=== PATIENT | female | born 1955 | race Caucasian/White ===

== ENCOUNTER → 2018-05-17 10:51 | Outpatient (CLI) | payer BC, SELFPAY ==
--- NOTE | 2018-05-17 10:56 | MM_ITS ---
MM Dig screening mamm BI w/CAD ORDERING PHYSICIAN : Sin Alfaro MD PATIENT AGE: 62 years GENDER: Female COMPARISON: March INDICATION: ITS.REASON: SCREENING routine screening mammogram. No hormones no new complaints. Previous benign excisional biopsy right breast noncontributory family history TECHNIQUE: Standard CC and MLO images were obtained. R2 CAD reviewed. FINDINGS: Lower density breast with no dominant mass nor suspicious calcifications. RIGHT BREAST:No significant new findings Stable small likely intramammary lymph node at the lateral left breast again noted on cc view. LEFT BREAST no new findings No interval change. . Minimal nodularity at the lateral superior left breast is stable IMPRESSION: Stable bilateral mammogram No new areas of concern. Bilateral follow-up in one year BI-RADS Category: 2 Benign Finding(s) RECOMMENDED FOLLOW-UP: 1YR 1 YEAR FOLLOW-UP (A letter has been sent to the patient regarding results of the study.)
== END ==
PROVIDERS: PCP Family Medicine; Visit Provider Family Medicine
DX: Z12.31 Encounter for screening mammogram for malignant neoplasm of breast (principal)
CPT/HCPCS: 77067

== ENCOUNTER → 2018-05-24 08:55 | Outpatient (CLI) | payer BC, SELFPAY ==
--- NOTE | 2018-05-24 09:01 | XR_ITS ---
XR DEXA axial skeleton HISTORY: ITS.REASON: OSTEOPENIA ORDERING PHYSICIAN: Sin Alfaro MD PATIENT AGE: 62 years COMPARISON: None FINDINGS: The BMD measured at the Right femoral neck is 0.931 g/cm squared with a T score of -0.8. This is considered normal according to the World Health Organization criteria. Fracture risk is low. Treatment is advised. L1 L4 density has a T score of 1.5 which is normal IMPRESSION: Normal bone density with low fracture risk. Recommend follow-up exam May 2020
[2018-05-24 10:52] LABS: Hemoglobin A1C 6.3 % (0.0-7.0)
== END ==
PROVIDERS: Family Medicine; PCP Family Medicine; Visit Provider Family Medicine
DX: M85.89 Other specified disorders of bone density and structure, multiple sites (principal); R73.9 Hyperglycemia, unspecified
CPT/HCPCS: 36415; 77080; 83036

== ENCOUNTER → 2020-02-01 09:39 | Outpatient (CLI) | payer BC, SELFPAY ==
--- NOTE | 2020-02-01 09:44 | US_ITS ---
PROCEDURE: US PELVIC CLINICAL INDICATION: FIBROIDS Pelvic pain, unable to do transvaginal exam due to pain. COMPARISON: No exams were available for comparison FINDINGS: Endovaginal exam not able to be performed due to pelvic pain. The uterus is 9.5 x 3.6 x 5.7 cm in poorly demonstrated due to patient's body habitus and inability to do endovaginal exam. There is a questionable fibroid along the anterior aspect of the uterus at 3.3 x 3.7 cm.. The endometrium is not well delineated. The ovaries are not visualized. IMPRESSION: Somewhat limited study. 3.7 cm fibroid in the fundus of the uterus Dictated by: Dawood Kemp MD 02/02/2020 10:23 Electronically signed by Dawood eKmp MD in [place] 02/02/2020 10:23
== END ==
PROVIDERS: PCP Family Medicine; Visit Provider Family Medicine
DX: D21.9 Benign neoplasm of connective and other soft tissue, unspecified (principal)
CPT/HCPCS: 76856

== ENCOUNTER 2020-08-10 12:31 | Outpatient (CLI) | payer BC, SELFPAY ==
[2020-08-10] VITALS (7 sets, daily range): BP systolic 124–144; BP diastolic 71–80; PULSE 64–75; RESP 18–20; TEMP 36.6–37.1; O2SAT 92–97
== END 2020-08-10 16:34 | disposition home or self-care (01) ==
PROVIDERS: PCP Family Medicine; Visit Provider Family Medicine
DX: U07.1 COVID-19 (principal)
CPT/HCPCS: 96365

== ENCOUNTER 2023-10-16 07:36 | Outpatient (CLI) | payer MEDICARE, SELFPAY ==
--- NOTE | 2023-10-16 07:39 | MM_ITS ---
PROCEDURE INFORMATION: Exam: MG Bilateral Screening 3D Mammography Exam date and time: 10/16/2023 7:51 AM Age: 68 years old Clinical indication: Screening. No family history of breast cancer. History of right excisional biopsy. TECHNIQUE: Imaging protocol: Bilateral Screening tomosynthesis and 2D mammography including computer-aided detection (CAD) when performed. COMPARISON: 1. MG SCBI MM Dig screening mamm BI w/CAD 05/17/2018 11:11 AM 2. MG DMSB DIG MAMM-SCREEN NABILA 05/20/2013 3:56 PM 3. MG DMSB DIGITAL MAMM-SCREEN BILATERAL 03/15/2012 10:27 AM 4. MG DMSB DIGITAL MAMM-SCREEN BILATERAL 12/18/2010 10:29 AM FINDINGS: MAMMOGRAPHY: Breast composition: There are scattered areas of fibroglandular density. Mass: No suspicious mass. Architectural distortion: None. Calcifications: No suspicious calcifications. Asymmetric density: None. Skin thickening: None. Axillary adenopathy: None. IMPRESSION: No mammographic evidence of malignancy. Annual screening is recommended unless otherwise clinically indicated. ASSESSMENT: BI-RADS Category 1: Negative
== END 2023-10-16 23:59 ==
LOC: RAD 07:36
PROVIDERS: PCP Family Medicine; Visit Provider Family Medicine
DX: Z12.31 Encounter for screening mammogram for malignant neoplasm of breast (principal)
CPT/HCPCS: 77063; 77067

== ENCOUNTER 2024-06-27 08:49 | Outpatient (CLI) | payer MEDICARE, SELFPAY ==
--- NOTE | 2024-06-27 | CA_ITS ---
APPROVED REPORT Exam: Exercise Treadmill Technologist: Miranda Shelton Ht: 5 ft 2 in Wt: 175 lbs BSA: 1.81 m2 HR: 71 bpm BP: 131/77 mmHg Stress Test Details HR Resting HR: 71 bpm Max Heart Rate (APMHR): 153 bpm Max HR Achieved: 154 bpm Target HR (85% APMHR): 130 bpm % of APMHR: 101 Recovery HR: 93 bpm BP Resting BP: 131.0/77.0 mmHg Max BP: 189.0/86.0 mmHg Recovery BP: 172.0/83.0 mmHg ECG Resting ECG: NSR Stress EC.[address] depression Arrhythmia: PVCs Recovery ECG: Return to baseline with 3 minutes Recovery Arrhythmia: PVCs Clinical Exercise duration: 6:45 min Highest Stage Achieved: III Exercise capacity: 8.3 METs Overall Exercise Capacity for Age: Average Stress ECG Conclusion Stage II: Mild SOA. R-arm pain. Stage III: SOA. Leg fatigue. Stopped -Target HR/Fatigue. 1 Min recovery: Right arm had claudication type pain during exercise and remained blue in color post recovery. Good pulse, good capillary refill, warm to touch. Patient declined to stay until resolution of symptoms. Symptoms: SOA. Arrhythmias/Ectopy: Heavy artifact. Rare PVC in recovery. Conclusion: Average exercise capacity Significant artifact at peak stress, but no obvious ECG evidence of ischemia at peak stress. Recommend further evaluation with stress testing + imaging modality to further evaluate for ischemia. Electronically signed by : Griselda Butcher MD 06/29/2024 11:07:32
--- NOTE | 2024-06-27 08:52 | XR_ITS ---
FINAL REPORT CLINICAL HISTORY: SCREENING COMPARISON: None FINDINGS: Using L1-4, the bone mineral density of the spine is 1.123 g/cm2, corresponding to T-score of 0.7, within normal limits. Using the left hip, the bone mineral density of the femoral neck is 0.844 g/cm2, corresponding to a T-score of 0.0, within normal limits. Using the right hip, the bone mineral density of the femoral neck is 0.819 g/cm2, corresponding to a T-score of -0.3, within normal limits. FRAX not reported because all T-scores at or above -1.0 NOTE: T-score: Standard deviation compared with peak bone mass of young adult mean. *Following the recommendations of the International Society of Bone densitometry, classification of hip BMD is based on the lower of two T-scores; total hip or femoral neck. IMPRESSION: Normal bone mineral density of the lumbar spine and hips. Reviewed, Interpreted and Dictated by Fanta Reyes MD Transcribed by Laura Li Authenticated and [facility]
== END 2024-06-27 23:59 | disposition home or self-care (01) ==
LOC: RAD 08:50
PROVIDERS: PCP Family Medicine; Visit Provider Family Medicine
DX: M81.0 Age-related osteoporosis without current pathological fracture (principal); R06.02 Shortness of breath
CPT/HCPCS: 77080; 93017; 93018

== ENCOUNTER 2024-07-07 11:20 | Outpatient (CLI) | payer MEDICARE, SELFPAY ==
--- NOTE | 2024-07-07 | CA_ITS ---
APPROVED REPORT Exam: Pharmacologic Technologist: Miranda Bowers Ht: 5 ft 2 in Wt: 180 lbs BSA: 1.83 m2 HR: 59 bpm BP: 161/78 mmHg Rhythm: NSR Medical History Medical History: HTN, Hyperlipidemia Stress Test Details Test: Pharmacologic stress testing performed using 0.4 mg of regadenoson per 5 mL given IV over 10 seconds., Pharmacologic stress testing performed using 0.4 mg of regadenoson per 5 mL given IV over 10 seconds. HR Resting HR: 59 bpm Max Heart Rate (APMHR): 153.189581 bpm Target HR (85% APMHR): 130.992351 bpm Recovery HR: 81 bpm BP Resting BP: 161.0/78.0 mmHg Max BP: 143.0/74.0 mmHg Recovery BP: 147.0/70.0 mmHg ECG Clinical Reason for Termination: Completed protocol Stress ECG Conclusion No chest pain. No arrhythmias <1.5mm ST segment changes. Non diagnostic Lexiscan stress test Electronically signed by : Griselda Butcher MD 07/10/2024 17:39:44
--- NOTE | 2024-07-07 11:25 | NM_ITS ---
APPROVED REPORT Exam: Nuclear Stress Test Indication: chest pain..soa..fatigue Patient Location: Outpatient Stress Tech: Miranda Bowers DC Tech:Jo Ann Torres FERDINAND RT(R)(N) Ht: 5 ft 1 in Wt: 180 lbs Bra Size: 38dd HR: 59 bpm BP: 161/78 mmHg BSA: 1.81 m2 TID: 0.90 BMI: 34.0 History: chest pain..soa..fatigue Procedure: Patient received 0.4 mg of intravenous Lexiscan, resting heart rate 59 bpm, resting blood pressure 161/78 mmHg, with Lexiscan maximum heart rate achieved was 90 bpm which is 85 % of the maximum predicted heart rate and blood pressure was 143/74 mmHg. With Lexiscan, patient denied any complaint of chest pain. Cardiac Stress and Resting SPECT Images: Cardiac Stress and Resting SPECT images were obtained using technetium 99m Myoview 30.5 mCi stress and 10.22 mCi at rest. Resting and stress imaging in supine and prone positions demonstrate no evidence of fixed or reversible perfusion defects. Gated imaging demonstrates normal global and regional LV systolic function. LVEF is calculated at 66%. Conclusion: No evidence of fixed or reversible perfusion defects. Gated imaging demonstrates normal global and regional LV systolic function. LVEF is calculated at 66%. Electronically signed by : Griselda Butcher MD 07/10/2024 17:37:34
[2024-07-07] MEDS: REGADENOSON 0.4MG/5ML SYRINGE 0.4 MG IV (13:57)
[2024-07-07] MEDS: ISOTOPE MYOVIEW (PER STUDY) 1 DOSE IV (13:57)
[2024-07-07] MEDS: SODIUM CHLORIDE 0.9% 10ML SYR (RAD ONLY) 10 ML IV ×2 (13:57)
== END 2024-07-07 23:59 | disposition home or self-care (01) ==
LOC: RAD 11:21
PROVIDERS: PCP Family Medicine; Visit Provider Family Medicine
DX: R06.02 Shortness of breath (principal); R94.39 Abnormal result of other cardiovascular function study
CPT/HCPCS: 78452; 93017; 93018; A9502; J2785

== ENCOUNTER 2024-10-26 12:42 | Outpatient (CLI) | payer MEDICARE, SELFPAY ==
--- OUTSIDE RECORDS SUMMARY | 2024-10-26 12:43 | XMS_ITS | Data Portability ---
Author Organization [facility] ADMIN Address [address] [place] [phone] Assessment No assessment recorded. Plan of Treatment Reminders Order Date Submit Date Provider Last Modified By Organization Details Last Modified Time Details Appointments None record ed. Lab None record ed. Referral None record ed. Procedures None record ed. Surgeries None record ed. Imaging None record ed. Medication Orders None record ed. Patient TargetsNo targets recorded. Patient InstructionsNo instructions recorded. Reason for Referral None Reported. Problems Name Problem SNOMED Code Status Onset Date Resolution Date Notes Provider Name and Address Organization Details Recorded Time Sensorineural hearing loss [id number] Active 2022 PÉREZ LARA [address] , [place], [address] , [facility] [place] 3 11:17:03 Problem Notes None recorded. Procedures Surgical History Date Name Laterality Status Provider Name and Address Organization Details Recorded Time 3 Removal of foreign body from ear canal completed So Mckeon MD [address] , [place], [address], [facility] [place] 10/28/2022 13:52:55 Imaging Results None recorded. Procedure Notes None recorded. Medical Equipment None Reported. Medications Name Sig Start Date Stop Date Status Note LastModified by Organization Details LastModified Time sertraline 100 mg tablet TAKE 1 TABLET BY MOUTH ONCE DAILY active Not Available Not Available No t Available meclizine 12.5 mg tablet TAKE 1 TABLET BY MOUTH THREE TIMES DAILY NEEDED active Not Available Not Available No t Available prednisolone acetate 1 % eye drops,suspen carlene INSTILL 1 DROP INTO THE AFFECTED EYE 4 TIMES DAILY FOR 4 DAYS THEN TWICE DAILY FOR 4 DAYS, BEGIN IMMEDIATELY AFTER YAG active Not Available Not Available No t Available clotrimazole -betamethaso ne 1 %-0.05 % topical cream APPLY CREAM TOPICALLY TWICE DAILY active Not Available Not Available Not Available triamterene 37.5 mg-hydrochlo rothiazide 25 mg tablet TAKE 1 TABLET BY MOUTH ONCE DAILY active Not Available Not Available No t Available mupirocin 2 % topical ointment APPLY OINTMENT TOPICALLY TWICE DAILY active Not Available Not Available Not Available brompheniram ine-pseudoep hedrine-DM 2 mg-30 mg-10 mg/5 mL oral syrup TAKE 5 ML TO 10 ML BY MOUTH EVERY 4 TO 6 HOURS NEEDED FOR COUGH AND CONGESTION -MAX 40ML PER DAY active Not Available Not Available No t Available tobramycin 0.3 %-dexamethas one 0.1 % eye drops,suspen carlene INSTILL 1 DROP INTO EACH EYE 4 TIMES DAILY FOR 5 DAYS active Not Available Not Available N ot Available azithromycin 500 mg tablet TAKE 1 TABLET BY MOUTH ONCE DAILY FOR 3 DAYS UNTIL ALL TAKEN active Not Available Not Available No t Available rosuvastatin 10 mg tablet active Not Available Not Available Not Available rosuvastatin 20 mg tablet TAKE 1/2 (ONE-HALF) TABLET BY MOUTH ONCE DAILY active Not Available Not Available No t Available Trulicity 1.5 mg/0.5 mL subcutaneous pen injector active Not Available Not Available Not Available Trulicity 0.75 mg/0.5 mL subcutaneous pen injector active Not Available Not Available Not Available Vitals None Recorded Social History None recorded. Functional Status None recorded. Mental Status None recorded. Family History Nothing Reported. Medical History No medical history recorded. Gynecological HistoryNo gynecological history recorded. Obstetrics History GPAL:G 0 P 0 0 0 0 Past Encounters Encounter ID Performer Location Encounter Start Date Encounter Closed Date Diagnosis/Indication Diagnosis SNOMED-CT Code Diagnosis ICD10 Code Diagnosis Note [id number] So Mckeon MD [facility] [facility] [place] [address] 10/28/2022 13:37:34 10/28/2022 13:38:13 Foreign body in left ear [id number] T16.2XXA Hearing aid tip removed in office today. Ear healthy otherwise. Will see her back as needed. [id number] PÉREZ LARA [facility] [facility], [facility] [place] [address] 03/25/2023 10:48:52 03/25/2023 11:06:30 Sensorineural hearing loss 02510212 H90.3 Health Concerns Section Related Observation LastModified by Organization Detai ls LastModified Time None Recorded Concern Status LastModified by Organization Details LastModified Time None Recorded Advance Directives Directive None Recorded Payers Encounter Date Sequence Insurance Name Policy Number Policy [place] Covered Member ID [place] Member ID Guarantor Name 10/28/[address] [facility] (MEDICARE REPLACEMENT/A DVANTAGE - PPO) [id number] Noris Montanez [id number] Noris Montanez 03/25/[address] [facility] (MEDICARE REPLACEMENT/A DVANTAGE - PPO) [id number] Noris Montanez [id number] Noris Montanez Notes Date Note Type Note Provider Name and Address Organization Details Recorded Time 10/28/2022 text/html 67yo female in the office today with a hearing aid tip lodged in her left ear canal. States she felt it come off in her ear on Thursday. She hasn't had any drainage or other trouble. Patient well know to me a history of bilateral ear surgeries the last of which was at the [facility]. She has been a long time hearing aid wearer and has a hearing aid tip stuck in her left ear. So Mckeon MD [address], [place], [address], [facility] [place] 10/28/2022 13:59:20 03/25/2023 text/html Patient was seen today for a hearing aid service. Cleaned and adjusted hearing aids this date. PÉREZ LARA [address], [place], [address], [facility] 03/25/2023 11:17:19 OBGyn Episode No OBEpisode recorded.
--- NOTE | 2024-10-26 12:46 | MM_ITS ---
PROCEDURE INFORMATION: Exam: MG Bilateral Screening 3D Mammography Exam date and time: 10/26/2024 1:13 PM Age: 69 years old Clinical indication: Screening examination TECHNIQUE: Imaging protocol: Bilateral Screening tomosynthesis and 2D mammography including computer-aided detection (CAD) when performed. COMPARISON: 1. MG MM DIG SCREENING MAMM BI W/CAD 10/16/2023 7:51 AM 2. MG SCBI MM Dig screening mamm BI w/CAD 05/17/2018 11:11 AM FINDINGS: MAMMOGRAPHY: Breast composition: There are scattered areas of fibroglandular density. Mass: None. Architectural distortion: None. Calcifications: No suspicious calcifications. Asymmetric density: None. Skin thickening: None. Axillary adenopathy: None. IMPRESSION: No mammographic evidence of malignancy. Annual screening is recommended unless otherwise clinically indicated. ASSESSMENT: BI-RADS Category 1: Negative.
== END 2024-10-26 23:59 | disposition home or self-care (01) ==
LOC: RAD 12:42
PROVIDERS: PCP Family Medicine; Visit Provider Family Medicine
DX: Z12.31 Encounter for screening mammogram for malignant neoplasm of breast (principal)
CPT/HCPCS: 77063; 77067

== ENCOUNTER 2025-06-23 10:09 | Outpatient (CLI) | payer MEDICARE, SELFPAY ==
--- OUTSIDE RECORDS SUMMARY | 2023-12-28 05:30 | XMS_ITS ---
Author Organization [facility] Address [address] [place] [id number] Care Team Providers Care Communication Coordinator Name Role Phone Kaitlyn Butcher Primary Care Provider Betzaida Bowman Unavailable [phone] Allergies Allergen (clinical drug ingredient) Drug/Non Drug Allergy documented on EMR Reaction Allergy Type Onset Date Status sulfamethoxazole / trimethoprim Bactrim rash Drug Allergy Active codeine Codeine nausea Drug Allergy Active Results Component Value Reference Range Notes Glycohemoglobin A1c (in hous e) Reviewed date:12/28/2023 11:47:20 AM Interpretation: Performing Lab: Notes/Report: glycohemoglobin 6.1% 5 - 6.5 % P-Comprehensive Metabolic Pa lauryn (CMP) Reviewed date:01/06/2024 12:21:11 PM Interpretation:K+ 3.4, gluc 131 Performing Lab: Notes/Report: Test performed by [facility] [address] [place] [address] , [address], [place] [address] Jimmie Cantrell MD, Hematology Nurse Educator CLIA: [id number] Sodium 140 135-145 mmol/L Potassium 3.4 3.5-5.3 mmol/L Chloride 101 97-108 mmol/L CO2 31 22-32 mmol/L Glucose 131 65-99 mg/dL BUN 16 8-23 mg/dL Creatinine 0.79 0.50-1.00 mg/dL Calcium 9.1 8.6-10.4 mg/dL eGFR by Creatinine 82 >59 mL/min/1.73m2 Protein 6.7 6.0-8.3 g/dL Albumin 4.4 3.5-5.3 g/dL Alkaline Phosphatase 67 35-121 IU/L ALT (SGPT) 23 <5-47 IU/L AST (SGOT) 21 <5-40 IU/L Bilirubin, Total 0.5 <0.2-1.2 mg/dL A/G Ratio 1.9 1.1-2.5 mg/dL P-Lipid Panel Reviewed date:01/06/2024 12:21:11 PM Interpretation:Normal Performing Lab: Notes/Report: Test performed by [facility] [address] [facility] , [address], [place] [address] Jimmie Cantrell MD, Hematology Nurse Educator CLIA: [id number] Cholesterol 151 <200 mg/dL Triglycerides 119 <150 mg/dL HDL Cholesterol 50 >39 mg/dL Cholesterol / HDL Ratio 3.02 0.00-4.44 Ratio Non-HDL Cholesterol 101 <130 mg/dL LDL Cholesterol (Calculation) 77 <130 mg/dL LDL Cholesterol Levels* Less than 100 mg/dL Optimal 100 to 129 mg/dL Near Optimal/ Above Optimal 130 to 159 mg/dL Borderline High 160 to 189 mg/dL High 190 mg/dL and above Very High * Categories as recommended by the 2004 ATPIII guidelines LDL/HDL Ratio 1.5 <3.3 Ratio LDL Cholesterol Patient History Test Date: 12/28/2023 LDL Results: 77 Units: mg/dL % Change: - P-Microalbumin/Creatinine, R andom Urine Sample Reviewed date:01/06/2024 12:21:11 PM Interpretation:Normal Performing Lab: Notes/Report: Test performed by [facility] [address] [place] [address] , [address], [place] [address] Jimmie Cantrell MD, Hematology Nurse Educator CLIA: [id number] Albumin/Creatinine Ratio, Urine 3 0-30 ug/m g Microalbumin, Urine, Random 0.5 Creatinine, Urine 169.6 REASON FOR VISIT 5 Month Check Up, Needs labs, bone density screening, & diabetic eye exam Medications Medication SIG (Take, Route, Frequency, Duration) Notes Start Date End Date Status Maxzide-25 37.5-25 MG 1 tab(s) orally once a day Active Rosuvastatin Calcium 10 mg TAKE 1 TABLET DAILY Active Sertraline HCl 100 MG 1 tab(s) orally on ce a day; Duration: 90 days Active Ozempic (0.25 or 0.5 MG/DOSE) 2 MG/3ML 0.25mg Subcutaneous weekly; Duration: 30 day(s) 12/28/2023 Active Problems Problem Type SNOMED Code ICD Code Onset Dates Problem Status W/U Status Risk Notes Problem Body mass index 30.00 to 34.99 ([id number]) BMI 34.0-34.9,a dult (Z68.34) Active confirmed Vital Signs Weight 185.4 lbs 12/28/2023 Blood pressure systolic 130 mm Hg 12/28/19 24 Blood pressure diastolic 80 mm Hg 024 Heart Rate 64 /min 12/28/2023 Height 61.50 in 12/28/2023 BMI 34.46 kg/m2 12/28/2023 Encounters Encounter Location Date Provider Diagnosis [facility] [facility] [address] [facility] [address] [place] [id number] 12/28/2023 Kaitlyn Butcher Type 2 diabetes debra itus without complication, without long-term current use of insulin E11.9 ; BMI 34.0-34.9,adult Z68.34 ; Essential hypertension I10 and Mixed hyperlipidemia E78.2 Assessments Encounter Date Diagnosis (ICD Code) Assessment Notes Treatment Notes Treatment Clinical Notes Section Notes 12/28/2023 Type 2 diabetes mellitus without complication, without long-term current use of insulin (ICD-10 - E11.9) 12/28/2023 BMI 34.0-34.9,adult (ICD-10 - Z68.34) 12/28/2023 Essential hypertension (ICD-10 - I10) 12/28/2023 Mixed hyperlipidemia (ICD-10 - E78.2) Plan Of Treatment Medication Medication Name Sig Start Date Stop Date Notes Ozempic (0.25 or 0.5 MG/DOSE) 2 MG/3ML 0.25mg Subcutaneous weekly; Duration: 30 day(s) 12/28/2023 Next Appt Details Follow Up: 2 Months, Reason: Provider Name:Kaitlyn Vargas , 06/23/2025 10:00:00 AM, [address] [facility] [address] [facility], [address], [place], [place], [id number], Provider Name:Kaitlyn Vargas , 08/21/2025 11:00:00 AM, [address] [facility] [address] [facility], [address], [place], [place], [id number], Progress Notes * Radha MONTANEZRanjithB:1955 (69 yo F)Acc No.[id number]:12/28/2023 Progress Notes Patient: Noris PLASENCIA Provider: Kaitlyn Butcher M.D. :1955 A ge:68 Y S ex:Female Date:12/28/2023 Address:[address] [place] [address] Subjective: * Chief Complaints: * 1 . 5 Month Check Up. 2. Needs labs, bone density screening, & diabetic eye exam. * HPI: C ardiology: The pt is here for a check up on Hypertension, Hyperlipidemia and Diabetes. Pt states she is doing good and denies any new concerns. Pt is fasting. Pt states refills are not needed at this time. Denies : Chest Pain. D enies : Short of Breath. D enies : Dizziness. D enies : Palpitations. * ROS: D ERMATOLOGY: no R maria de jesus. n o H irma. G ASTROENTEROLOGY: no N ausea. n o V omiting. n o D iarrhea.? U ROLOGY: no D ifficulty urinating. n o B lood in urine. * Medical History: H earing deficit, chronic otitis, surgeries, Asthmatic bronchitis, 02/09/2020 Negative Cologard, COVID 24 Aug 2020, COVID 19 Vaccine, Pfizer 11/13, 12/04/2020. * Surgical History: c -section x2 , breast biopsy , ears x3 , tubes in ear 08/12, Lt. knee surgery torn medial meniscus January 03, sinus surgery 10-06-14, Right knee replacement, Dr. Bradley, [facility] 01/23/16, Left Knee Replacement - Dr. Hernandez @ [facility] 05/07/17, right cataract removal 02/07/20, left cataract removal 02/15/20. * Hospitalization/Major Diagno stic Procedure: s ee above . * Family History: F ather: alive. M other: alive. P aternal Grand Father: . P aternal Grand Mother: . M aternal Grand Father: . M aternal Grand Mother: . 2 sister(s) . 1 son(s) , 1 daughter(s) . . mother graves disease ; sister diagnosed with colon cancer and has just completed her chemo. * Social History: C URRENT TOBACCO USE S moking Status: Patient does NOT smoke. C affeine: yes, frequency:daily. Exercise: yes. Home smoke detector use: yes. Marital Status: . New since last visit: none. Occupation: yes. Past smoking status: no, Smoking status: Does not smoke. Occup. exposure: none. Recreational drug use: no. Alcohol: socially, Type: , Frequency: ,Years: , Determination:. Sexually active: yes. Travel ouside [place]: no. * Medications: T aking Rosuvastatin Calcium 10 mg Tablet TAKE 1 TABLET DAILY , Taking Maxzide-25 37.5-25 MG Tablet 1 tab(s) orally once a day , Taking Sertraline HCl 100 MG Tablet 1 tab(s) orally once a day , Discontinued Aspirin 81 MG Tablet Delayed Release 1 tab(s) orally once a day , Discontinued Bydureon BCise 2 MG/0.85ML Auto-injector 2mg Subcutaneous once a week , Medication List reviewed and reconciled with the patient * Allergies: B actrim: rash - Allergy, Codeine: nausea - Side Effects. Objective: * Vitals: W t:185.4, Temp:98.2, BP:130/80, HR:64, Nurse:BRADEN, Ht: 61.50, BMI:34.46. * Examination: G eneral Examination: General Appearance: N AD. H EENT: u nremarkable.?Oral cavity: n o lesions, mucosa moist and WNL, no erythema. N stephen: s upple, no lymphadenopathy. C hest: n ormal shape and expansion. H eart: R SR. L ungs: c lear to auscultation. N eurologic Exam: I ntact, gait normal. S kin: n ormal, no rash.?Peripheral pulses: n ormal . E xtremities: n o leg edema. Assessment: * Assessment: 1. T ype 2 diabetes mellitus without complication, without long-term current use of insulin - E11.9 (Primary) 2 . B WV 34.0-34.9,adult - Z68.34 3 . E ssential hypertension - I10 4 . M ixed hyperlipidemia - E78.2 Plan: * Treatment: Value Reference Range A lbumin/Creatinine Ratio, Urine 3 0-30 - ug /mg * C reatinine, Urine 169.6 - mg/dL * M icroalbumin, Urine, Random 0.5 - mg/dL * please complete Abida Medrano 01/06/2024 12:21:00 PM >See phone encounter ?LAB: Glycohemoglobin A1c (in house) (Collection Date & Time - 12/28/2023)* Value Reference Range g lycohemoglobin 6.1% 5 - 6.5 % * Malina Bliss 12/28/2023 10: 06:42 AM > , Provider reviewed results while patient in office. 2.?Essential hypertension?LAB: P-Comprehensive Metabolic Panel (CMP) (Collection Date & Time - 12/28/2023 08:45 AM)?K+ 3.4, gluc 131* Value Reference Range A /G Ratio 1.9 1.1-2.5 - mg/dL * A lbumin 4.4 3.5-5.3 - g/dL * A lkaline Phosphatase 67 35-121 - IU/L * A LT (SGPT) 23 <5-47 - IU/L * A ST (SGOT) 21 <5-40 - IU/L * B ilirubin, Total 0.5 <0.2-1.2 - mg/dL * B UN 16 8-23 - mg/dL * C alcium 9.1 8.6-10.4 - mg/dL * C hloride 101 97-108 - mmol/L * C O2 31 22-32 - mmol/L * C reatinine 0.79 0.50-1.00 - mg/dL * G lucose 131 H 65-99 - mg/dL * P otassium 3.4 L 3.5-5.3 - mmol/L * S odium 140 135-145 - mmol/L * P rotein 6.7 6.0-8.3 - g/dL * e GFR by Creatinine 82 >59 - mL/min/1.73m2 * Abida Rao Ann 01/06/2024 12:21:00 PM >See phone encounter 3.?Mixed hyperlipidemia?LAB: P-Lipid Panel (Collection Date & Time - 12/28/2023 08:45 AM)?Normal* Value Reference Range C holesterol / HDL Ratio 3.02 0.00-4.44 - Ratio * C holesterol 151 <200 - mg/dL * H DL Cholesterol 50 >39 - mg/dL * L DL Cholesterol (Calculation) 77 <130 - mg/d L * L DL/HDL Ratio 1.5 <3.3 - Ratio * N on-HDL Cholesterol 101 <130 - mg/dL * T riglycerides 119 <150 - mg/dL * Abida Rao Ann 01/06/2024 12:21:00 PM >See phone encounter * Procedure Codes: 3 6416 CAPILLARY BLOOD DRAW, [address] GLYCATED HEMOGLOBIN TEST, Modifiers: QW * Follow Up: 2 Months * Images: Billing Information: * Visit Code: 36486 Office Visit, Est Pt., Level 3. * Procedure Codes: 61612 CAPILLARY BLOOD DRAW. 82447 GLYCATED HEMOGLOBIN TEST. Modifiers: QW * Electronic signature of Kaitlyn Butcher MD on 06/23/2025 at 10:12 AM EST Sign off status: Pending * Provider: Kaitlyn Butcher M.D. Date: 0 12/28/2023 Generated for Printi ng/Uyeng/eTransmitting on: 1 08/24/2024 10:12 AM EST History and Physical Notes * HPI (History of Present Illness) Category Sub-Category Detail Notes Category Not es Cardiology Short of Breath Chest Pain Palpitations Dizziness Examination Category Sub-Category Detail Notes Category Not es General Examination HEENT: unremarkable Heart: RSR Lungs: clear to auscultatio n Extremities: no leg edema General Appearance: NAD Skin: normal, no rash Neurologic Exam: Intact, gait normal Neck: supple, no lymphaden opathy Oral cavity: no lesions, mucosa m oist and WNL, no erythema Peripheral pulses: normal Chest: normal shape and exp ansion
--- OUTSIDE RECORDS SUMMARY | 2024-03-14 06:30 | XMS_ITS ---
Author Organization [facility] Address [address] [id number] Care Team Providers Care Knife Grinder Name Role Phone Kaitlyn Butcher Primary Care Provider [phone] Betzaida Bowman Unavailable [phone] Allergies Allergen (clinical drug ingredient) Drug/Non Drug Allergy documented on EMR Reaction Allergy Type Onset Date Status sulfamethoxazole / trimethoprim Bactrim rash Drug Allergy Active codeine Codeine nausea Drug Allergy Active Results Component Value Reference Range Notes Glycohemoglobin A1c (in hous e) Reviewed date:03/15/2024 08:54:51 AM Interpretation: Performing Lab: Notes/Report: glycohemoglobin 6.1% 5 - 6.5 % REASON FOR VISIT 2 month check, Needs labs, bone density screening, & diabetic eye exam Medications Medication SIG (Take, Route, Frequency, Duration) Notes Start Date End Date Status Ozempic (0.25 or 0.5 MG/DOSE) 2 MG/3ML 0.25mg Subcutaneous weekly 12/28/2023 Active Sertraline HCl 100 MG 1 tab(s) orally on ce a day; Duration: 90 days Active Potassium Chloride ER 10 MEQ 1 tablet with food Orally once a day; Duration: 30 day(s) 01/08/2024 Not-Taking Maxzide-25 37.5-25 MG 1 tab(s) orally on ce a day Active Rosuvastatin Calcium 10 mg 1 tablet Orally Once a day; Duration: 90 days Active Vital Signs Weight 000 lbs 03/14/2024 Blood pressure systolic 140 mm Hg 03/14/20 24 Blood pressure diastolic 72 mm Hg 024 Heart Rate 66 /min 03/14/2024 Height 61.50 in 03/14/2024 Encounters Encounter Location Date Provider Diagnosis [facility] [facility] [address] [facility] [address] [place] [id number] 03/14/2024 Katilyn Butcher Essential hypertensi on I10 ; Depression with anxiety F41.8 and Type 2 diabetes mellitus without complication, without long-term current use of insulin E11.9 Assessments Encounter Date Diagnosis (ICD Code) Assessment Notes Treatment Notes Treatment Clinical Notes Section Notes 03/14/2024 Essential hypertension (ICD-10 - I10) 03/14/2024 Depression with anxiety (ICD-10 - F41.8) 03/14/2024 Type 2 diabetes mellitus without complication, without long-term current use of insulin (ICD-10 - E11.9) Plan Of Treatment Medication Medication Name Sig Start Date Stop Date Notes Ozempic (0.25 or 0.5 MG/DOSE ) 2 MG/3ML 0.25mg Subcutaneous weekly 12/28/2023 Next Appt Details Follow Up: 3 Months, Reason: Provider Name:Kaitlyn Vargas , 06/23/2025 10:00:00 AM, [facility] [address] [facility], [address], [place], [id number], Provider Name:Kaitlyn Vargas , 08/21/2025 11:00:00 AM, [address] [facility] [address] [facility], [address], [place], [id number], Progress Notes * Russell MONTANEZB:1955 (69 yo F)Acc No.[id number]:03/14/2024 Progress Notes Patient: Noris PLASENCIA Provider: Kaitlyn Butcher M.D. :1955 A ge:68 Y S ex:Female Date:03/14/2024 Address:[address] [place], [place] [address] [address] Subjective: * Chief Complaints: * 1 . 2 month check. 2. Needs labs, bone density screening, & diabetic eye exam. * HPI: C ardiology: The pt is here today for a check up on Hypertension, Hyperlipidemia and Diabetes. Pt states she is doing good today and denies any new concerns. Pt is fasting. Pt states she is needing a refill for Maxide sent to [facility] in [place]. Denies : Chest Pain. D enies : [...] Negative Cologard, COVID 24 Aug 2020, COVID Vaccine, Pfizer 11/13, 12/04/2020. * Surgical History: c -section x2 , breast biopsy , ears x3 , tubes in ear 08/12, Lt. knee surgery torn medial meniscus January 03, sinus surgery 10-06-14, Right knee replacement, Dr. Bradley, [facility] 01/23/16, Left Knee Replacement - Dr. Hernandez @ [facility] 05/07/17, right cataract removal 02/07/20, left cataract [...] ouside [place]: no. * Medications: T aking Maxzide-25 37.5-25 MG Tablet 1 tab(s) orally once a day , Taking Sertraline HCl 100 MG Tablet 1 tab(s) orally once a day , Taking Rosuvastatin Calcium 10 mg Tablet 1 tablet Orally Once a day , Not-Taking Ozempic (0.25 or 0.5 MG/DOSE) 2 MG/3ML Solution Pen-injector 0.25mg Subcutaneous weekly , Not-Taking Potassium Chloride ER 10 MEQ Tablet Extended Release 1 tablet with food Orally once a day , Medication List reviewed and reconciled with the patient * Allergies: B actrim: rash - Allergy, Codeine: nausea - Side Effects. Objective: * Vitals: W t:000, Temp:98.3, BP:140/72, HR:66, Nurse:BRADEN, Ht: 61.50, Repeat BP:132/74. * Examination: G eneral Examination: General Appearance: [...] ormal . E xtremities: n o leg edema, 1 cm plantar wart of the left foot. Assessment: * Assessment: 1. E ssential hypertension - I10 (Primary) 2 . D epression with anxiety - F41.8 3 . T ype 2 diabetes mellitus without complication, without long-term current use of insulin - E11.9 Plan: * Treatment: Value Reference Range g lycohemoglobin 6.1% 5 - 6.5 % * Taylor Sinclair 03/14/2024 12:12:31 PM > , Provider reviewed results while patient in office. * Procedure Codes: 3 6416 CAPILLARY BLOOD DRAW, [address] GLYCATED HEMOGLOBIN TEST, Modifiers: QW * Follow Up: 3 Months * Images: Billing Information: * Visit Code: 18643 Office Visit, Est Pt., Level 3. * Procedure Codes: 28380 CAPILLARY BLOOD DRAW. 53564 GLYCATED HEMOGLOBIN TEST. Modifiers: QW * Electronic signature of Kaitlyn Butcher MD on 06/23/2025 at 10:12 AM EST Sign off status: Pending * Provider: Kaitlyn Butcher M.D. Date: 0 03/14/2024 Generated for [place] rico/Marley/Rajat on: 1 08/24/2024 10:12 AM EST History and Physical Notes * HPI (History of Present Illness) Category Sub-Category Detail Notes Category Not es Cardiology Short of Breath Chest Pain Palpitations Dizziness Examination Category Sub-Category Detail Notes Category Not es General Examination HEENT: unremarkable Heart: RSR Lungs: clear to auscultatio n Extremities: no leg edema, 1 cm p lantar wart of the left foot General Appearance: NAD Skin: normal, no rash Neurologic Exam: Intact, gait normal Neck: supple, no lymphaden opathy Oral cavity: no lesions, mucosa m oist and WNL, no erythema Peripheral pulses: normal Chest: normal shape and exp ansion
--- OUTSIDE RECORDS SUMMARY | 2024-06-20 05:30 | XMS_ITS ---
Author Organization [facility] Address [address] [facility] [address] [place] [phone] Care Team Providers Care Medication Administration Professional Name Role Phone Kaitlyn Butcher Primary Care Provider [phone] Betzaida Bowman Unavailable [phone] Allergies Allergen (clinical drug ingredient) Drug/Non Drug Allergy documented on EMR Reaction Allergy Type Onset Date Status sulfamethoxazole / trimethoprim Bactrim rash Drug Allergy Active codeine Codeine nausea Drug Allergy Active Results Component Value Reference Range Notes Glycohemoglobin A1c (in hous e) Reviewed date:06/21/2024 10:11:54 AM Interpretation: Performing Lab: Notes/Report: glycohemoglobin 6.1% 5 - 6.5 % P-Comprehensive Metabolic Pa lauryn (CMP) Reviewed date:06/22/2024 03:28:22 PM Interpretation:fasting gluc 114, a1c discussed in OV Performing Lab: Notes/Report: Test performed by [facility] [address] [place] [address] , [address], [place] [address] Jimmie Cantrell MD, Cuff Turner Machine Operator CLIA: [id number] Sodium 141 135-145 mmol/L Potassium 3.8 3.5-5.3 mmol/L Chloride 100 97-108 mmol/L CO2 30 22-32 mmol/L Glucose 114 65-99 mg/dL BUN 20 8-23 mg/dL Creatinine 0.98 0.50-1.00 mg/dL Calcium 9.4 8.6-10.4 mg/dL eGFR by Creatinine 63 >59 mL/min/1.73m2 Protein 6.7 6.0-8.3 g/dL Albumin 4.4 3.5-5.3 g/dL Alkaline Phosphatase 64 35-121 IU/L ALT (SGPT) 24 <5-47 IU/L AST (SGOT) 26 <5-40 IU/L Bilirubin, Total 0.4 <0.2-1.2 mg/dL A/G Ratio 1.9 1.1-2.5 DEXA Hip and Spine Reviewed date:06/30/2024 12:27:28 PM Interpretation:Normal Performing Lab: Notes/Report: Normal Dexa results Normal Cardiac Stress Test Exercise Routine Reviewed date:06/30/2024 11:47:05 AM Interpretation:further testing recommended Performing Lab: Notes/Report: further testing recommended REASON FOR VISIT checkup, Needs labs, bone density screening, diabetic eye exam, & flu vaccine Medications Medication SIG (Take, Route, Frequency, Duration) Notes Start Date End Date Status Potassium Chloride ER 10 MEQ 1 tablet with food Orally once a day; Duration: 30 day(s) 01/08/2024 Not-Taking Sertraline HCl 100 MG 1 tab(s) orally on ce a day; Duration: 90 days Active Maxzide-25 37.5-25 MG 1 tab(s) orally on ce a day Active Trulicity 0.75 MG/0.5ML as directed Subc utaneous once weekly; Duration: 90 days 03/17/2024 Active Mupirocin 2 % 1 application Costume Design Teacher ally Twice a day 06/20/2024 Active Rosuvastatin Calcium 10 mg 1 tablet Orally Once a day; Duration: 90 days Active Immunizations Vaccine Route Administration Date Status Comme [facility] PNEUMOVAX 23 VACCINE IM Intramuscular 06/20/2024 Administe red Vital Signs Weight 000 lbs 06/20/2024 Blood pressure systolic 140 mm Hg 06/20/20 24 Blood pressure diastolic 80 mm Hg 024 Heart Rate 72 /min 06/20/2024 Height 61.50 in 06/20/2024 Encounters Encounter Location Date Provider Diagnosis [facility] [address] [facility] [address] [place] [phone] 06/20/2024 Kaitlyn Butcher Essential hypertensi on I10 ; Mild intermittent asthma without complication J45.20 ; Status post knee replacement Z96.659 ; Type 2 diabetes mellitus without complication, without long-term current use of insulin E11.9 ; Abscess L02.91 ; Shortness of breath R06.02 ; Osteopenia, unspecified location M85.80 ; Encounter for immunization Z23 and Hypokalemia E87.6 Assessments Encounter Date Diagnosis (ICD Code) Assessment Notes Treatment Notes Treatment Clinical Notes Section Notes 06/20/2024 Essential hypertension (ICD-10 - I10) 06/20/2024 Mild intermittent asthma without complication (ICD-10 - J45.20) 06/20/2024 Status post knee replacement (ICD-10 - Z96.659) 06/20/2024 Type 2 diabetes mellitus without complication, without long-term current use of insulin (ICD-10 - E11.9) 06/20/2024 Abscess (ICD-10 - L02.91) 06/20/2024 Shortness of breath (ICD-10 - R06.02) 06/20/2024 Osteopenia, unspecified location (ICD-10 - M85.80) 06/20/2024 Encounter for immunization (ICD-10 - Z23) 06/20/2024 Hypokalemia (ICD-10 - E87.6) Plan Of Treatment Medication Medication Name Sig Start Date Stop Date Notes Mupirocin 2 % 1 application Externally Twice a day 024 Next Appt Details Follow Up: 4 Months, Reason: Provider Name:Kaitlyn Vargas , 06/23/2025 10:00:00 AM, [address] [facility] [address] [facility], [facility] [address], [place], [place], [phone], Provider Name:Kaitlyn Vargas , 08/21/2025 11:00:00 AM, [address] [facility] [address] [facility], [facility] [address], [place], [place], [phone], Progress Notes * Russell MONTANEZB:1955 (69 yo F)Acc No.[id number]:06/20/2024 Progress Notes Patient: Noris PLASENCIA Provider: Kaitlyn Butcher M.D. :1955 A ge:68 Y S ex:Female Date:06/20/2024 Address:[address] [place], [place] [phone] Subjective: * Chief Complaints: * 1 . Checkup. 2. Needs labs, bone density screening, diabetic eye exam, & flu vaccine. * HPI: C ardiology: The patient is here for a check up on Hypertension, Hyperlipidemia, and Diabetes. Pt is fasting. Pt states she has had several class mates that have had to have heart stents and would like to dicsuss. Denies : Chest Pain. D enies : Short of Breath. D enies : Dizziness. D enies : Palpitations. D ermatology: Needs refill on Mupirocin for recurrent skin lesions. * ROS: D ERMATOLOGY: no R maria de jesus. n o H irma. G ASTROENTEROLOGY: no N ausea. n o V omiting. n o D iarrhea.? U ROLOGY: no D ifficulty urinating. n o B lood in urine. * Medical History: H earing deficit, chronic otitis, surgeries, Asthmatic bronchitis, 02/09/2020 Negative Cologard, COVID 24 Aug 2020, COVID 19 Vaccine, Pfizer 11/13, 12/04/2020, 2023 Flu shot. * Surgical History: c -section x2 , breast biopsy , ears x3 , tubes in ear 08/12, Lt. knee surgery torn medial meniscus January 03, sinus surgery 10-06-14, Right knee replacement, Dr. Bradley, [facility] 01/23/16, Left Knee Replacement - Dr. Hernandez @ [facility] 05/07/17, right cataract removal 02/07/20, left cataract removal 02/15/20. * Hospitalization/Major Diagno stic Procedure: s ee above . * Family History: F ather: alive. M other: alive. P aternal Grand Father: . P aternal Grand Mother: . M aternal Grand Father: . M aternal Grand Mother: . 2 sister(s) . 1 son(s) , 1 daughter(s) . . mother graves disease ; \ sister diagnosed with colon cancer and has [...] T aking Rosuvastatin Calcium 10 mg Tablet 1 tablet Orally Once a day , Taking Maxzide-25 37.5-25 MG Tablet 1 tab(s) orally once a day , Taking Trulicity 0.75 MG/0.5ML Solution Pen-injector as directed Subcutaneous once weekly , Taking Sertraline HCl 100 MG Tablet 1 tab(s) orally once a day , Not-Taking Potassium Chloride ER 10 MEQ Tablet Extended Release 1 tablet with food Orally once a day , Medication List reviewed and reconciled with the patient * Allergies: B actrim: rash - Allergy, Codeine: nausea - Side Effects. Objective: * Vitals: W t:000, Temp:97.7, BP:140/80, HR:72, Nurse:BRADEN, Ht: 61.50, Repeat BP:138/70. * Examination: G eneral Examination: General Appearance: N AD. H EENT: u nremarkable.?Oral cavity: n o lesions, mucosa moist and WNL, no erythema. N stephen: s upple, no lymphadenopathy. C hest: n ormal shape and expansion. H eart: R SR. L ungs: c lear to auscultation. A bdomen: soft and nontender, no organomegaly or masses. N eurologic Exam: I ntact, gait normal. S kin: n ormal, no rash. P eripheral pulses: n ormal . E xtremities: n o leg edema, varicosities of the left leg, some tenderness at the left groin with straight leg raising. Assessment: * Assessment: 1. E ssential hypertension - I10 (Primary) 2 . M ild intermittent asthma without complication - J45.20 3 . S tatus post knee replacement - Z96.659 ? 4 . T ype 2 diabetes mellitus without complication, without long-term current use of insulin - E11.9 5 . A bscess - L02.91 6 . S hortness of breath - R06.02 7 . O steopenia, unspecified location - M85.80 8 . E ncounter for immunization - Z23 9 . H ypokalemia - E87.6 Plan: * Treatment: Value Reference Range A /G Ratio 1.9 1.1-2.5 - * A lbumin 4.4 3.5-5.3 - g/dL * A lkaline Phosphatase 64 35-121 - IU/L * A LT (SGPT) 24 <5-47 - IU/L * A ST (SGOT) 26 <5-40 - IU/L * B ilirubin, Total 0.4 <0.2-1.2 - mg/dL * B UN 20 8-23 - mg/dL * C alcium 9.4 8.6-10.4 - mg/dL * C hloride 100 97-108 - mmol/L * C O2 30 22-32 - mmol/L * C reatinine 0.98 0.50-1.00 - mg/dL * G lucose 114 H 65-99 - mg/dL * P otassium 3.8 3.5-5.3 - mmol/L * S odium 141 135-145 - mmol/L * P rotein 6.7 6.0-8.3 - g/dL * e GFR by Creatinine 63 >59 - mL/min/1.73m2 * aMlina Bliss 06/22/2024 3: 27:17 PM > , Left voicemail informing of normal lab results 2.?Type 2 diabetes mellitus without complication, without long-term current use of insulin?LAB: Glycohemoglobin A1c (in house) (Collection Date & Time - 06/20/2024)* Value Reference Range g lycohemoglobin 6.1% 5 - 6.5 % * Malina Bliss 06/20/2024 11 :47:32 AM > , Provider reviewed results while patient in office. 3.?Abscess? Start Mupirocin Ointment, 2 %, 1 application, Externally, Twice a day, 22 Gram, Refills 3.? 4.?Shortness of breath?Imaging: Cardiac Stress Test Exercise Routine (Performed Date - 06/27/2024) ?further testing recommended* Portia Ly 06/20/2024 2:27 :32 PM > no auth required; CPT code 36008; faxed to [facility] Dedra Cochran 06/21/2024 9:37:35 AM > 06/27 @9:30WhYohana elaine 06/30/2024 11:46:59 AM > See phone encounter 5.?Osteopenia, unspecified location?Imaging: DEXA Hip and Spine (Performed Date - 06/27/2024)?Normal* Value Reference Range D exa results Normal * Portia Ly 06/20/2024 11:4 8:14 AM > no auth required; CPT code 79226; faxed to [facility] TeresaPortia Ly 06/20/2024 2:21:16 PM > 06/27/2024 at 09:15amFrances Blissnibossman Eller 06/30/2024 12:27:14 PM > , Patient informed of normal results. * Immunizations: PNEUMOVAX 23 VACCINE (Route: Intramuscular) given by Malina Bliss on Right Deltoid * Procedure Codes: G 2211 Complex e/[place], [address] CAPILLARY BLOOD DRAW, 21311 GLYCATED HEMOGLOBIN TEST, Modifiers: QW * Follow Up: 4 Months * Images: Billing Information: * Visit Code: 81709 Office Visit, Est Pt., Level 4. * Procedure Codes: G2211 Complex e/[place]. [address] CAPILLARY BLOOD DRAW. 59736 GLYCATED HEMOGLOBIN TEST. Modifiers: QW * Electronic signature of Kaitlyn Butcher MD on 06/23/2025 at 10:12 AM EST Sign off status: Pending * Provider: Kaitlyn Butcher M.D. Date: 08/21/2023 Generated for Macarioi ng/Marley/eTransmitting on: 08/24/2024 10:12 AM EST History and Physical Notes * HPI (History of Present Illness) Category Sub-Category Detail Notes Category Not es Cardiology Short of Breath Chest Pain Palpitations Dizziness Examination Category Sub-Category Detail Notes Category Not es General Examination HEENT: unremarkable Heart: RSR Lungs: clear to auscultatio n Abdomen: soft and nontender, no organomegaly or masses Extremities: no leg edema, varico sities of the left leg, some tenderness at the left groin with straight leg raising General Appearance: NAD Skin: normal, no rash Neurologic Exam: Intact, gait normal Neck: supple, no lymphaden opathy Oral cavity: no lesions, mucosa m oist and WNL, no erythema Peripheral pulses: normal Chest: normal shape and exp ansion
--- OUTSIDE RECORDS SUMMARY | 2024-10-17 05:30 | XMS_ITS ---
Author Organization [facility] Address [address] [id number] Care Team Providers Care Curriculum Coach Name Role Phone Kaitlyn Butcher Primary Care Provider [phone] Betzaida Bowman Unavailable [phone] Allergies Allergen (clinical drug ingredient) Drug/Non Drug Allergy documented on EMR Reaction Allergy Type Onset Date Status sulfamethoxazole / trimethoprim Bactrim rash Drug Allergy Active codeine Codeine nausea Drug Allergy Active Results Component Value Reference Range Notes P-Comprehensive Metabolic Pa lauryn (CMP) Reviewed date:10/21/2024 11:11:45 AM Interpretation:Normal Performing Lab: Notes/Report: Test performed by [facility], [address] , [address], [place] [address] Jimmie Cantrell MD, Automotive Quality Engineer CLIA: [id number] Sodium 140 135-145 mmol/L Potassium 3.8 3.5-5.3 mmol/L Chloride 99 97-108 mmol/L CO2 30 22-32 mmol/L Glucose 112 65-99 mg/dL BUN 20 8-23 mg/dL Creatinine 0.96 0.50-1.00 mg/dL Calcium 9.4 8.6-10.4 mg/dL eGFR by Creatinine 64 >59 mL/min/1.73m2 Protein 6.9 6.0-8.3 g/dL Albumin 4.5 3.5-5.3 g/dL Alkaline Phosphatase 71 35-121 IU/L ALT (SGPT) 19 <5-47 IU/L AST (SGOT) 19 <5-40 IU/L Bilirubin, Total 0.5 <0.2-1.2 mg/dL A/G Ratio 1.9 1.1-2.5 P-Lipid Panel Reviewed date:10/21/2024 11:11:45 AM Interpretation:Normal Performing Lab: Notes/Report: Test performed by [facility] [address] [place] [address] , [address], [place] [address] Jimmie Cantrell MD, Automotive Quality Engineer CLIA: [id number] Cholesterol 163 <200 mg/dL Triglycerides 128 <150 mg/dL HDL Cholesterol 50 >39 mg/dL Cholesterol / HDL Ratio 3.26 0.00-4.44 Ratio Non-HDL Cholesterol 113 <130 mg/dL LDL Cholesterol (Calculation) 87 <130 mg/dL LDL Cholesterol Levels* Less than 100 mg/dL Optimal 100 to 129 mg/dL Near Optimal/ Above Optimal 130 to 159 mg/dL Borderline High 160 to 189 mg/dL High 190 mg/dL and above Very High * Categories as recommended by the 2004 ATPIII guidelines LDL/HDL Ratio 1.7 <3.3 Ratio LDL Cholesterol Patient History Test Date: 12/28/2023 LDL Results: 77 Units: mg/dL % Change: - Test Date: 10/17/2024 LDL Results: 87 Units: mg/dL % Change: +12% REASON FOR VISIT 4 month ckup, Needs labs, mammogram, & diabetic eye exam Medications Medication SIG (Take, Route, Frequency, Duration) Notes Start Date End Date Status Triamterene-HCTZ 37.5-25 MG Take 1 tablet by mouth once daily; Duration: 90 Active Rosuvastatin Calcium 10 mg 1 tablet Orally Once a day; Duration: 90 days Active Pataday 0.1 % 1 drop into affected eye Ophthalmic Twice a day 10/17/2024 Active Trulicity 1.5 MG/0.5ML as directed Subcutaneous Active Mupirocin 2 % 1 application Insurance Policy Issue Clerk ally Twice a day 06/20/2024 Active Sertraline HCl 100 MG 1 tab(s) orally on ce a day; Duration: 90 days Active Potassium Chloride ER 10 MEQ 1 tablet with food Orally once a day; Duration: 30 day(s) 01/08/2024 Not-Taking Problems Problem Type SNOMED Code ICD Code Onset Dates Problem Status W/U Status Risk Notes Problem Fibrocystic breast changes (44187791) Fibrocystic breast changes, unspecified laterality (N60.19) Active confirmed Vital Signs Weight 000 lbs 10/17/2024 Blood pressure systolic 130 mm Hg 10/18/19 25 Blood pressure diastolic 70 mm Hg 025 Heart Rate 64 /min 10/17/2024 Height 61.50 in 10/17/2024 Encounters Encounter Location Date Provider Diagnosis [facility] [address] [facility] [address] [place], [place] [id number] 10/17/2024 Kaitlyn Butcher Essential hypertensi on I10 ; Mixed hyperlipidemia E78.2 ; Mild intermittent asthma without complication J45.20 ; Status post knee replacement Z96.659 ; Type 2 diabetes mellitus without complication, without long-term current use of insulin E11.9 ; Conjunctivitis of both eyes, unspecified conjunctivitis type H10.9 and Fibrocystic breast changes, unspecified laterality N60.19 Assessments Encounter Date Diagnosis (ICD Code) Assessment Notes Treatment Notes Treatment Clinical Notes Section Notes 10/17/2024 Essential hypertension (ICD-10 - I10) 10/17/2024 Mixed hyperlipidemia (ICD-10 - E78.2) 10/17/2024 Mild intermittent asthma without complication (ICD-10 - J45.20) 10/17/2024 Status post knee replacement (ICD-10 - Z96.659) 10/17/2024 Type 2 diabetes mellitus without complication, without long-term current use of insulin (ICD-10 - E11.9) 10/17/2024 Conjunctivitis of both eyes, unspecified conjunctivitis type (ICD-10 - H10.9) 10/17/2024 Fibrocystic breast changes, unspecified laterality (ICD-10 - N60.19) Plan Of Treatment Medication Medication Name Sig Start Date Stop Date Notes Pataday 0.1 % 1 drop into affected eye Ophthalmic Twice a day 10/17/2024 Trulicity 0.75 MG/0.5ML INJECT 0.75MG ONCE A WEEK Trulicity 1.5 MG/0.5ML as directed Subcutaneous Next Appt Details Follow Up: 5 M, Reason: Provider Name:Kaitlyn Vargas , 06/23/2025 10:00:00 AM, [address] [facility] [address] [facility], [facility] [address], [place], [place], [id number], Provider Name:Kaitlyn Vargas , 08/21/2025 11:00:00 AM, [address] [facility], [address], [place], [place], [id number], Progress Notes * Russell MONTANEZB:1955 (69 yo F)Acc No.[id number]:10/17/2024 Progress Notes Patient: Noris PLASENCIA Provider: Kaitlyn Butcher M.D. :1955 A ge:69 Y S ex:Female Date:10/17/2024 Address:[address] [place], [place] [id number] Subjective: * Chief Complaints: * 1 . 4 month ckup. 2. Needs labs, mammogram, & diabetic eye exam. * HPI: C ardiology: The pt is here today for a check up on Hypertension, Hyperlipidemia and diabetes. Pt states she is doing good except for allergies. C/O eye irritation. Pt states she is fasting. See 07/07/24 Myoview GXT. Good report. EF=66%. Denies : Chest Pain. D enies : [...] surgery 10-06-14, Right knee replacement, Dr. Bradley, [facility] 01/23/16, Left Knee Replacement - Dr. Hernandez [...] ouside US: no. * Medications: T aking Sertraline HCl 100 MG Tablet 1 tab(s) orally once a day , Taking Mupirocin 2 % Ointment 1 application Externally Twice a day , Taking Trulicity 0.75 MG/0.5ML Solution Auto-injector INJECT 0.75MG ONCE A WEEK , Taking Rosuvastatin Calcium 10 mg Tablet 1 tablet Orally Once a day , Taking Triamterene-HCTZ 37.5-25 MG Tablet Take 1 tablet by mouth once daily , Not-Taking Potassium Chloride ER 10 MEQ Tablet Extended Release 1 tablet with food Orally once a day , Discontinued Medrol 4 MG Tablet Therapy Pack as directed Orally , Medication List reviewed and reconciled with the patient * Allergies: B actrim: rash - Allergy, Codeine: nausea - Side Effects. Objective: * Vitals: W t:000, Temp:97.8, BP:130/70, HR:64, Nurse:BRADEN, Ht: 61.50. * Examination: G eneral Examination: General Appearance: N AD. H EENT: e yes not injected. O ral cavity: n o lesions, mucosa moist and WNL, no erythema. N stephen: s upple, no lymphadenopathy. C hest: n ormal shape and expansion. H eart: R SR. L ungs: clear to auscultation. N eurologic Exam: I ntact, gait normal. S kin: n ormal, no rash. P eripheral pulses: n ormal . E xtremities: n o leg edema. ? Assessment: * Assessment: 1. E ssential hypertension - I10 (Primary) 2 . M ixed hyperlipidemia - E78.2 3 . M ild intermittent asthma without complication - J45.20 4 . S tatus post knee replacement - Z96.659 5 . T ype 2 diabetes mellitus without complication, without long-term current use of insulin - E11.9 6 . C onjunctivitis of both eyes, unspecified conjunctivitis type - H10.9 7 . F ibrocystic breast changes, unspecified laterality - N60.19 Plan: * Treatment: Value Reference Range A /G Ratio 1.9 1.1-2.5 - * A lbumin 4.5 3.5-5.3 - g/dL * A lkaline Phosphatase 71 35-121 - IU/L * A LT (SGPT) 19 <5-47 - IU/L * A ST (SGOT) 19 <5-40 - IU/L * B ilirubin, Total 0.5 <0.2-1.2 - mg/dL * B UN 20 8-23 - mg/dL * C alcium 9.4 8.6-10.4 - mg/dL * C hloride 99 97-108 - mmol/L * C O2 30 22-32 - mmol/L * C reatinine 0.96 0.50-1.00 - mg/dL * G lucose 112 H 65-99 - mg/dL * P otassium 3.8 3.5-5.3 - mmol/L * S odium 140 135-145 - mmol/L * P rotein 6.9 6.0-8.3 - g/dL * e GFR by Creatinine 64 >59 - mL/min/1.73m2 * Malina Bliss 10/21/2024 11 :11:17 AM > Left voicemail informing of normal lab results 2.?Mixed hyperlipidemia?LAB: P-Lipid Panel (Collection Date & Time - 10/17/2024 10:48 AM)?Normal* Value Reference Range C holesterol / HDL Ratio 3.26 0.00-4.44 - Ratio * C holesterol 163 <200 - mg/dL * H DL Cholesterol 50 >39 - mg/dL * L DL Cholesterol (Calculation) 87 <130 - mg/d L * L DL/HDL Ratio 1.7 <3.3 - Ratio * N on-HDL Cholesterol 113 <130 - mg/dL * T riglycerides 128 <150 - mg/dL * Malina Bliss 10/21/2024 11 :11:17 AM > Left voicemail informing of normal lab results 3.?Type 2 diabetes mellitus without complication, without long-term current use of insulin? Start Trulicity Solution Auto-injector, 1.5 MG/0.5ML, as directed, Subcutaneous, 12, Refills 5; Stop Trulicity Solution Auto-injector, 0.75 MG/0.5ML, INJECT 0.75MG ONCE A WEEK.??4.?Conjunctivitis of both eyes, unspecified conjunctivitis type? Start Pataday Solution, 0.1 %, 1 drop into affected eye, Ophthalmic, Twice a day, 1, Refills 3. ? * Procedure Codes: G 2211 Complex e/m visit add on, G8752 MOST RECENT SYSTOLIC BP < 140MM HG, G8754 MOST RECENT DIASTOLIC BP < 90MM HG * Follow Up: 5 M * Images: Billing Information: * Visit Code: 72625 Office Visit, Est Pt., Level 4. * Procedure Codes: G2211 Complex e/m visit add on. G8752 MOST RECENT SYSTOLIC BP < 140MM HG. G8754 MOST RECENT DIASTOLIC BP < 90MM HG. * Electronic signature of Kaitlyn Butcher MD on 06/23/2025 at 10:12 AM EST Sign off status: Pending * Provider: Kaitlyn Bucther M.D. Date: 0 10/17/2024 Generated for Asia rico/Marley/Ellyitting on: 1 08/24/2024 10:12 AM EST History and Physical Notes * HPI (History of Present Illness) Category Sub-Category Detail Notes Category Not es Cardiology Short of Breath Chest Pain Palpitations Dizziness Examination Category Sub-Category Detail Notes Category Not es General Examination HEENT: eyes not injected Heart: RSR Lungs: clear to auscultatio n Extremities: no leg edema General Appearance: NAD Skin: normal, no rash Neurologic Exam: Intact, gait normal Neck: supple, no lymphaden opathy Oral cavity: no lesions, mucosa m oist and WNL, no erythema Peripheral pulses: normal Chest: normal shape and exp ansion
--- OUTSIDE RECORDS SUMMARY | 2025-03-23 08:30 | XMS_ITS ---
Author Organization [facility] Address [address] [facility] [address] [facility] [address] [place] [id number] Care Team Providers Care Solution Design And Analysis Manager Name Role Phone Kaitlyn Butcher Primary Care Provider Betzaida Bowman Unavailable [phone] REASON FOR VISIT 5 months, Needs labs & diabetic eye exam Encounters Encounter Location Date Provider Diagnosis [facility] [address] [facility] [address] [place] [id number] 03/23/2025 Kaitlyn Butcher Plan Of Treatment Pending Test Test Name Order Date CBC Venipuncture (in house) 03/23/2025 P-Comprehensive Metabolic Panel (CMP) P-Hemoglobin A1C 03/23/2025 P-Microalbumin/Creatinine, Random Urine Sample 03/23/2025 Next Appt Details Provider Name:Kaitlyn Vargas er, 06/23/2025 10:00:00 AM, [address] [facility] [address] [facility], [address], [place], [id number], Provider Name:Kaitlyn Vargas er, 08/21/2025 11:00:00 AM, [address] [facility] [address], [address], [place], [place], [id number], Progress Notes * Rsusell MONTANEZB:1955 (69 yo F)Acc No.[id number]:03/23/2025 Progress Notes Patient: Noris PLASENCIA Provider: Kaitlyn Butcher M.D. :1955 A ge:69 Y S ex:Female Date:03/23/2025 Address:[address] [place] [address] Subjective: * Chief Complaints: * 1 . 5 months. 2. Needs labs & diabetic eye exam. * Medical History: Objective: * Vitals: Assessment: Plan: * Treatment: * Labs: * L ab: P-Hemoglobin A1C L ab: P-Microalbumin/Creatinine, Random Urine Sample L ab: CBC Venipuncture (in house) L ab: P-Comprehensive Metabolic Panel (CMP) * Procedure Codes: 8 5025 CBC WITH AUTO DIFF * Images: Billing Information: * Visit Code: * Procedure Codes: 38381 CBC WITH AUTO DIFF. * Electronic signature of Kaitlyn Butcher MD on 06/23/2025 at 10:11 AM EST Sign off status: Pending * Provider: Kaitlyn Butcher M.D. Date: 0 03/23/2025 Generated for Asia rico/Marley/Jessiesmitting on: 1 08/24/2024 10:11 AM EST
--- OUTSIDE RECORDS SUMMARY | 2025-06-19 08:15 | XMS_ITS ---
Author Organization [facility] Address [address] [facility] [address] [place] [id number] Care Team Providers Care Custom Bow Maker Name Role Phone Kaitlyn Butcher Primary Care Provider Betzaida Bowman Unavailable [phone] Allergies Allergen (clinical drug ingredient) Drug/Non Drug Allergy documented on EMR Reaction Allergy Type Onset Date Status sulfamethoxazole / trimethoprim Bactrim rash Drug Allergy Active codeine Codeine nausea Drug Allergy Active Results Component Value Reference Range Notes Glycohemoglobin A1c (in hous e) Reviewed date:06/19/2025 05:14:06 PM Interpretation:6.8 Performing Lab: Notes/Report: 6.8 glycohemoglobin 6.8% 5 - 6.5 % P-Comprehensive Metabolic Pa lauryn (CMP) Reviewed date:06/22/2025 05:20:34 PM Interpretation:Normal Performing Lab: Notes/Report: Test performed by [facility] [address] [place] [address] , [address], [place] [address] Jomar Randall MD, PhD, [facility], Civil Engineering Specialist CLIA: [id number] Sodium 141 135-145 mmol/L Potassium 3.9 3.5-5.3 mmol/L Chloride 100 97-108 mmol/L CO2 28 20-32 mmol/L Glucose 112 65-99 mg/dL BUN 14 8-23 mg/dL Creatinine 0.98 0.50-1.00 mg/dL Calcium 9.3 8.6-10.4 mg/dL eGFR by Creatinine 63 >59 mL/min/1.73m2 Protein 6.7 6.0-8.3 g/dL Albumin 4.6 3.5-5.3 g/dL Alkaline Phosphatase 70 41-145 IU/L ALT (SGPT) 29 <5-47 IU/L AST (SGOT) 28 <5-40 IU/L Bilirubin, Total 0.4 <0.2-1.2 mg/dL A/G Ratio 2.2 1.1-2.5 P-Microalbumin/Creatinine, R andom Urine Sample Reviewed date:06/22/2025 05:20:34 PM Interpretation:Normal Performing Lab: Notes/Report: Test performed by [facility] [address] [place] [address] , [address], [place] [address] Jomar Randall MD, PhD, [facility], Civil Engineering Specialist CLIA: [id number] Albumin/Creatinine Ratio, Urine 2 0-30 ug/m g Microalbumin, Urine, Random 0.3 Creatinine, Urine 158.7 REASON FOR VISIT ckup, microalbumin, other lab work, Needs labs & diabetic eye exam Medications Medication SIG (Take, Route, Frequency, Duration) Notes Start Date End Date Status Pataday 0.1 % 1 drop into affected eye Ophthalmic Twice a day 10/17/2024 Not-Takin g Potassium Chloride ER 10 MEQ 1 tablet with food Orally once a day; Duration: 30 day(s) 01/08/2024 Not-Taking Sertraline HCl 100 MG 1 tab(s) orally on ce a day; Duration: 90 days Active Triamterene-HCTZ 37.5-25 MG 1 tablet in the morning Orally Once a day; Duration: 90 days Active Rosuvastatin Calcium 10 mg 1 tablet Orally Once a day; Duration: 90 days Active Mupirocin 2 % 1 application Diamond Finishing Supervisor ally Twice a day 06/20/2024 Not-Taking Trulicity 1.5 MG/0.5ML as directed Subcutaneous Not-Taking metFORMIN HCl ER 500 MG 1 tablet with ev ening meal Orally Once a day; Duration: 30 days 06/19/2025 Active Problems Problem Type SNOMED Code ICD Code Onset Dates Problem Status W/U Status Risk Notes Problem Irritable bowel syndrome (27995664) Irritable bowel syndrome with both constipation and diarrhea (K58.2) Active confirmed Problem Uterine leiomyoma (18402001) History of uterine fibroid (Z86.018) Active confirmed Vital Signs Blood pressure systolic 130 mm Hg 06/19/20 25 Blood pressure diastolic 76 mm Hg 025 Heart Rate 66 /min 06/19/2025 Height 61.50 in 06/19/2025 Encounters Encounter Location Date Provider Diagnosis [place] [address] [facility] [address] [facility] [address] [place] [id number] 06/19/2025 Kaitlyn Butcher Essential hypertensi on I10 ; Type 2 diabetes mellitus without complication, without long-term current use of insulin E11.9 ; Status post knee replacement Z96.659 ; Irritable bowel syndrome with both constipation and diarrhea K58.2 and History of uterine fibroid Z86.018 Assessments Encounter Date Diagnosis (ICD Code) Assessment Notes Treatment Notes Treatment Clinical Notes Section Notes 06/19/2025 Essential hypertension (ICD-10 - I10) 06/19/2025 Type 2 diabetes mellitus without complication, without long-term current use of insulin (ICD-10 - E11.9) 06/19/2025 Status post knee replacement (ICD-10 - Z96.659) 06/19/2025 Irritable bowel syndrome with both constipation and diarrhea (ICD-10 - K58.2) Recommended Benefiber and Align 06/19/2025 History of uterine fibroid (ICD-10 - Z86.018) Plan Of Treatment Medication Medication Name Sig Start Date Stop Date Notes metFORMIN HCl ER 500 MG 1 tablet with ev ening meal Orally Once a day; Duration: 30 days 06/19/2025 Treatment Notes Assessment Notes Irritable bowel syndrome wit h both constipation and diarrhea Recommended Benefiber and Align Pending Test Test Name Order Date Ultrasound : Abdomen and Pelvis 06/19/20 25 CBC Fingerstick (in house) 06/19/2025 Next Appt Details Follow Up: 2 Months, Reason: Provider Name:Kaitlyn norton, 06/23/2025 10:00:00 AM, [address] [facility], [address], [place], [id number], Provider Name:Kaitlyn Vargas , 08/21/2025 11:00:00 AM, [address] [facility], [address], [place], [phone], Progress Notes * Kirill MONTANEZ:1955 (69 yo F)Acc No.[id number]:06/19/2025 Progress Notes Patient: Noris PLASENCIA Provider: Kaitlyn Butcher M.D. :1955 A ge:69 Y S ex:Female Date:06/19/2025 Address:[address] [place] [address] Subjective: * Chief Complaints: * 1 . Ckup, microalbumin, other lab work. 2. Needs labs & diabetic eye exam. * HPI: C ardiology: The patient is here today for a check-up on Hypertension, Hyperlipidemia, and Diabetes. Pt states she is doing good except for some continued insomnia. Pt states she is also having bowel issues. Pt states some days she is constipated and the other days she has diarrhea. Denies : Chest Pain. D enies : Short of Breath. D enies : Dizziness. D enies : Palpitations. * ROS: C ONSTITUTIONAL: Positive for A nother physician seen since last visit? No, Change in medication since last visit? No, Are you taking antibiotics? No, Are you taking steroids? No. D ERMATOLOGY: no R maria de jesus. [...] surgery 10-06-14, Right knee replacement, Dr. Bradley, [facility] 01/23/16, Left Knee Replacement - Dr. Hernandez @ [facility] 05/07/17, right cataract removal 02/07/20, left [...] ouside US: no. * Medications: T aking Triamterene-HCTZ 37.5-25 MG Tablet 1 tablet in the morning Orally Once a day , Taking Rosuvastatin Calcium 10 mg Tablet 1 tablet Orally Once a day , Taking Sertraline HCl 100 MG Tablet 1 tab(s) orally once a day , Not-Taking Mupirocin 2 % Ointment 1 application Externally Twice a day , Not-Taking Trulicity 1.5 MG/0.5ML Solution Auto-injector as directed Subcutaneous , Not-Taking Pataday 0.1 % Solution 1 drop into affected eye Ophthalmic Twice a day , Not-Taking Potassium Chloride ER 10 MEQ Tablet Extended Release 1 tablet with food Orally once a day , Medication List reviewed and reconciled with the patient * Allergies: B actrim: rash - Allergy, Codeine: nausea - Side Effects. Objective: * Vitals: W t: Not Taken - Declined by Patient, Temp: 98.2, BP: 130/76, HR: 66, Nurse: BRADEN, Ht: 61.50. * Examination: G eneral Examination: [...] o leg edema. Assessment: * Assessment: 1. E ssential hypertension - I10 (Primary) 2 . T ype 2 diabetes mellitus without complication, without long-term current use of insulin - E11.9 3 . S tatus post knee replacement - Z96.659 4 . I rritable bowel syndrome with both constipation and diarrhea - K58.2 5 . H istory of uterine fibroid - Z86.018 ? Plan: * Treatment: Value Reference Range A /G Ratio 2.2 1.1-2.5 - * A lbumin 4.6 3.5-5.3 - g/dL * A lkaline Phosphatase 70 41-145 - IU/L * A LT (SGPT) 29 <5-47 - IU/L * A ST (SGOT) 28 <5-40 - IU/L * B ilirubin, Total 0.4 <0.2-1.2 - mg/dL * B UN 14 8-23 - mg/dL * C alcium 9.3 8.6-10.4 - mg/dL * C hloride 100 97-108 - mmol/L * C O2 28 20-32 - mmol/L * C reatinine 0.98 0.50-1.00 - mg/dL * G lucose 112 H 65-99 - mg/dL * P otassium 3.9 3.5-5.3 - mmol/L * S odium 141 135-145 - mmol/L * P rotein 6.7 6.0-8.3 - g/dL * e GFR by Creatinine 63 >59 - mL/min/1.73m2 * Malina Bliss 06/22/2025 1 2:55:11 PM EST >Left message for pt to return to the office for a cbc at no charge Malina Bliss 06/22/2025 05:20:24 PM EST > Patient informed of normal results. 2.?Type 2 diabetes mellitus without complication, without long-term current use of insulin? Start metFORMIN HCl ER Tablet Extended Release 24 Hour, 500 MG, 1 tablet with evening meal, Orally,Once a day, 30 days, 30 Tablet, Refills 5.?LAB: P-Microalbumin/Creatinine, Random Urine Sample (Collection Date & Time - 06/19/2025 12:10 PM)?Normal* Value Reference Range A lbumin/Creatinine Ratio, Urine 2 0-30 - ug /mg * C reatinine, Urine 158.7 - mg/dL * M icroalbumin, Urine, Random 0.3 - mg/dL * Malina Bliss 06/22/2025 1 2:55:11 PM EST >Left message for pt to return to the office for a cbc at no charge ?LAB: Glycohemoglobin A1c (in house) (Collection Date & Time - 06/19/2025)? 6.8* Value Reference Range g lycohemoglobin 6.8% 5 - 6.5 % * Malina Bliss 06/19/2025 0 1:23:32 PM EST > Provider reviewed results while patient in office. 3.?Irritable bowel syndrome with both constipation and diarrhea? Notes: Recommended Benefiber and Align??4.?History of uterine fibroid?Imaging: Ultrasound : Abdomen and Pelvis* Portia Ly 06/19/2025 02: 16:32 PM EST > faxed to [facility] Scheduling * Procedure Codes: G 2211 Complex e/[place], [address] GLYCATED HEMOGLOBIN TEST, Modifiers: QW , 7[address] CBC WITH AUTO DIFF, 05343 VENIPUNCT, ROUTINE*, 3044F HG A1C LEVEL LT 7.0%, G8950 PREHTN/HTN BP DOC INDCD F/U DOC, G8752 MOST RECENT SYSTOLIC BP < 140MM HG, G8754 MOST RECENT DIASTOLIC BP < 90MM HG, 3075F SYST BP GE 130 - 139MM HG, 3078F DIAST BP < 80 MM HG * Follow Up: 2 Months * Images: Billing Information: * Visit Code: 03431 Office Visit, Est Pt., Level 4. * Procedure Codes: G2211 Complex e/[place]. [address] GLYCATED HEMOGLOBIN TEST. Modifiers: QW 69082 CBC WITH AUTO DIFF. 45242 VENIPUNCT, ROUTINE*. 3044F HG A1C LEVEL LT 7.0%. G8950 PREHTN/HTN BP DOC INDCD F/U DOC. G8752 MOST RECENT SYSTOLIC BP < 140MM HG. G8754 MOST RECENT DIASTOLIC BP < 90MM HG. 3075F SYST BP GE 130 - 139MM HG. 3078F DIAST BP < 80 MM HG. * Electronic signature of Kaitlyn Butcher MD on 06/23/2025 at 10:12 AM EST Sign off status: Pending * Provider: Kaitlyn Butcher M.D. Date: 1 08/20/2024 Generated for Asia rico/Marley/eTransmitting on: 08/24/2024 10:12 AM EST History and [...]
--- OUTSIDE RECORDS SUMMARY | 2025-06-23 10:11 | XMS_ITS | Clinical Summary ---
Author Organization [facility] Address [address] [place] [address] Phone Care Team Providers Care Tankerman Name Role Phone Unavailable Primary Care Provider Unavailabl e Allergies Active Allergy Reactions Criticality Noted Date Comments Sulfatrim Ds Nausea And Vomiting Codeine Nausea And Vomiting Tramadol Nausea And Vomiting Medications escitalopram oxalate (LEXAPRO) 20 mg Oral Tablet Take 20 mg by mouth daily. Active TRIAMTERENE/HYDR OCHLOROTHIAZID (MAXZIDE-25MG ORAL) Take 25 mg by mouth. Active Active Problems No known active problems Surgical History Surgery Date Site/Laterality Comments KNEE SURGERY 05/07/2017 TENDON MANIPULATION Social History Tobacco Use Types Packs/Day Years Used Date Smoking Tobacco: Never Smokeless Tobacco: Never Comments No Sex and Gender Information Value Date Recorded Sex Assigned at Not on file Legal Sex Female 2:26 PM EST Gender Identity Not on file Sexual Orientation Not on file Last Filed Vital Signs Vital Sign Reading Time Taken Comments Blood Pressure 122/70 07/21/2017 2:44 PM EST Pulse 85 07/21/2017 2:44 PM EST Temperature 36.8 C (98.2 F) 07/21/2017 2:44 PM EST Respiratory Rate - - Oxygen Saturation 96% 07/21/2017 2:44 PM EST Inhaled Oxygen Concentration - - Weight 86.7 kg (191 lb 3.2 oz) 07/21/2017 2:44 P M EST Height 157.5 cm (5' 2 ) 07/21/2017 2:44 PM EST Body Mass Index 34.97 07/21/2017 2:44 PM EST Plan of Treatment Health Maintenance Due Date Last Done Comments Annual Wellness Exam 10/15/1959 Hepatitis C Screening 1974 DTaP/TDaP/Td (1 - Tdap) 10/15/1975 Breast Cancer Screening 1996 Cologuard 2001 Colon Cancer Screening 2001 Colonoscopy 2001 FIT 2001 Sigmoidoscopy 2001 Virtual Colonography 2001 Pneumococcal Vaccine 50+ (1 of 1 - PCV) 2006 Zoster (1 of 2) 2006 Bone Density Screening 2021 COVID-19 Vaccine (1 - 2024-2 6 season) 2025 Influenza Vaccine (#1) 2025 Hepatitis B Vaccine Aged Out No longe r eligible based on patient's age to complete this topic Meningococcal B Vaccine Aged Out No l onger eligible based on patient's age to complete this topic Insurance ANTH PPO ANTHEM PPO
--- OUTSIDE RECORDS SUMMARY | 2025-06-23 10:11 | XMS_ITS | Clinical Summary ---
Author Organization [facility] Address [address] [place] [address] Care Team Providers Care Watch Supervisor Name Role Phone Unavailable Primary Care Provider Unavailabl e Immunizations Immunization Administration Dates Next Due Influenza, seasonal, injectable 04/05/2015 Pneumococcal Polysaccharide PPV23 07/06/2010 Family History Medical History Relation Name Comments Asthma Mother Hypertension Other Asthma Sibling Relation Name Status Comments Mother Other Sibling Social History Tobacco Use Types Packs/Day Years Used Date Smoking Tobacco: Never Comments Unknown Sex and Gender Information Value Date Recorded Sex Assigned at Not on file Legal Sex Female 7:45 PM EDT Gender Identity Not on file Sexual Orientation Not on file Last Filed Vital Signs Vital Sign Reading Time Taken Comments Blood Pressure - - Pulse - - Temperature - - Respiratory Rate - - Oxygen Saturation - - Inhaled Oxygen Concentration - - Weight 84.8 kg (186 lb 15.9 oz) 10/17/2015 1:37 PM EDT Height 157.5 cm (5' 2 ) 10/17/2015 1:37 PM EDT Body Mass Index 34.2 10/17/2015 1:37 PM EDT Plan of Treatment Not on file
--- OUTSIDE RECORDS SUMMARY | 2025-06-23 10:11 | XMS_ITS | Clinical Summary ---
Author Organization [facility] Address [address] [place], [place] [address] Care Team Providers Care Athletic Monitor Name Role Phone Wes Rivera MD Unavailable [phone] Allergies Active Allergy Reactions Criticality Noted Date Comments Adhesive Tape-Silicones Itching,Rash Low 04/27/2017 Sulfamethoxazole-Trimethopri m Nausea And Vomiting Low 04/27/2017 Codeine Nausea And Vomiting,Rash Low 03/23/2017 Tramadol Hives Medium 03/23/2017 Medications triamterene-hydr ochlorothiazide (MAXZIDE-25) 37.5-25 mg per tablet Take 1 Tab by mouth daily. Active escitalopram oxalate (LEXAPRO) 20 mg Tablet Take 20 mg by mouth daily. Active diphenhydrAMINE (BENADRYL) 25 mg capsule Take 25 mg by mouth as needed. Active diazePAM (VALIUM) 5 mg tablet Take 0.5-1 Tabs by mouth every 6 hours as needed (Spasms). 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 Arthritis of left knee 05/07/2017 Arthritis of knee 05/07/2017 Hypertension Family History Medical History Relation Name Comments Arthritis Father High Cholesterol Father No Known Problems Maternal Aunt 1 Nargis No Known Problems Maternal Aunt 2 Bria No Known Problems Maternal Grandfather No Known Problems Maternal Grandmother Arthritis Mother COPD Mother Graves Disease Mother High Cholesterol Mother Other Mother Alzheimer's Other Paternal Grandfather blood c lot after surgery No Known Problems Paternal Grandmother Asthma Sister 1 Jodi Migraines Sister 1 Jodi Migraines Sister 2 Coco Other Sister 2 Coco vertigo Anesthesia Complications Neg Hx Cancer Neg Hx Diabetes Neg Hx Heart Problems Neg Hx Relation Name Status Comments Father Alive Maternal Aunt 1 Nargis Alive Maternal Aunt 2 Bria Alive Maternal Grandfather Maternal Grandmother Mother Alive Paternal Grandfather blood c lot after surgery Paternal Grandmother Sister 1 Jodi Alive Sister 2 Coco Alive Social History Tobacco Use Types Packs/Day Years Used Date Smoking Tobacco: Never Smokeless Tobacco: Never Alcohol Use Standard Drinks/Week Comments Yes 0 (1 standard drink = 0.6 oz pur e alcohol) rare social Comments Unknown Sex and Gender Information Value Date Recorded Sex Assigned at Not on file Legal Sex Female 12:34 PM EDT Gender Identity Not on file Sexual Orientation Not on file Last Filed Vital Signs Vital Sign Reading Time Taken Comments Blood Pressure 128/74 07/21/2017 12:00 PM EST Pulse 71 07/21/2017 12:10 PM EST Temperature 36.7 C (98 F) 07/21/2017 11:41 AM EST Respiratory Rate 16 07/21/2017 12:00 PM EST Oxygen Saturation 95% 07/21/2017 12:10 PM EST Inhaled Oxygen Concentration - - Weight 84.1 kg (185 lb 6 oz) 07/21/2017 9:59 AM EST Height 157.5 cm (5' 2 ) 07/21/2017 9:59 AM EST Body Mass Index 33.91 07/21/2017 9:59 AM EST Plan of Treatment Health Maintenance Due Date Last Done Comments Cologuard 1955 Colonoscopy 1956 Colorectal Cancer Screening 1956 FIT 1956 Lipid Screening 1974 Tetanus Vaccination (Every 10 Years) 1974 Hepatitis C Virus (HCV) Screening 1977 Breast Cancer Screening 2006 Pneumococcal Vaccine: 50+ Years (1 of 1 - PCV) 007 Zoster-RZV(Shingrix) (1 of 2) 2006 Fall Risk Assessment 2021 Osteoporosis Screening 2021 Advance Care Planning 07/06/2024 Depression Screening 07/06/2024 COVID-19 Vaccine ( - 2024- season) 2025 Influenza Vaccination (#1) 2025 RSV Vaccines (1 - 1-dose 75+ series) 10/15/2031 Medical Devices Implanted Type Area Hardware Engineer Device Identifier Shelf Expiration Date Model / Serial / Lot Cement Bone Palacos Implanted:Qty: 2 on 05/07/2017 by Wes Rivera MD at [facility] Left: Knee * BIOMET 01/02/2022 [id number] / / [id number] Legion P/S Xlpe Articular Insert 11mm Size 3-4 Implanted:Qty: 1 on 05/07/2017 by Wes Rivera MD at [facility] Left: Knee * CONWAY \T\ NEPHEW 07/02/2024 [id number] / / [id number] Franny Ii Resurfacing Cmpnt 26mm Implanted:Qty: 1 on 05/07/2017 by Wes Rivera MD at [facility] Left: Knee * CONWAY \T\ NEPHEW 03/02/2022 [id number] / / [id number] Baseplt Left Tib Gen Ii Sz 3 N Implanted:Qty: 1 on 05/07/2017 by Wes Rivera MD at [facility] Left: Knee * CONWAY \T\ NEPHEW 02/26/2027 [id number] / / [id number] Femoral Compnt Size 4 Left Implanted:Qty: 1 on 05/07/2017 by Wes Rivera MD at [facility] Left: Knee * CONWAY \T\ NEPHEW 11/08/2026 [id number] / / [id number] Lgn Gii Ps Verilast Digital Commentator Tib Implanted:Qty: 1 on 05/07/2017 by Wes Rivera MD at [facility] Left: Knee * CONWAY \T\ NEPHEW [id number] / / Insurance ANTHEM ANTHEM ANTHEM Advance Directives For more information, please contact: [phone] * Full Code (Latest Code Status on File) Date Activated Date Inactivated Comments 05/07/2017 12:26 PM 07/21/2017 9:21 AM Care Teams Athletic Monitor Relationship Specialty [place] [id number] [place] [address] Orthopedic Surgery 07/13/22
--- OUTSIDE RECORDS SUMMARY | 2025-06-23 10:12 | XMS_ITS | Patient Health Record ---
Author Organization [facility] Address [address] [facility] [address] [place], [place] [id number] Care Team Providers Care Nocturnist Name Role Phone Kaitlyn Butcher Primary Care Provider Betzaida Bowman Unavailable [phone] Allergies Allergen (clinical drug ingredient) Drug/Non Drug Allergy documented on EMR Reaction Allergy Type Onset Date Status sulfamethoxazole / trimethoprim Bactrim rash Drug Allergy Active codeine Codeine nausea Drug Allergy Active Results Component Value Reference Range Notes Cardiac Stress Test Exercise Cardiolyte Reviewed date:07/14/2024 01:34:42 PM Interpretation:Normal Performing Lab: Notes/Report: Normal P-Microalbumin/Creatinine, R andom Urine Sample Reviewed date:06/22/2025 05:20:34 PM Interpretation:Normal Performing Lab: Notes/Report: Test performed by [email or web address] [facility] [address] [place] [address] [address], [place] [address] Jomar Randall MD, PhD, FCAP, Guest Services Ambassador CLIA: [id number] Albumin/Creatinine Ratio, Urine 2 0-30 ug/m g Microalbumin, Urine, Random 0.3 Creatinine, Urine 158.7 P-Comprehensive Metabolic Pa lauryn (CMP) Reviewed date:06/22/2025 05:20:34 PM Interpretation:Normal Performing Lab: Notes/Report: Test performed by [email or web address] [facility] [address] [place] [address] , [address], [place] [address] Jomar Randall MD, PhD, FCAP, Guest Services Ambassador CLIA: [id number] Sodium 141 135-145 mmol/L Potassium 3.9 3.5-5.3 [...] 0.4 <0.2-1.2 mg/dL A/G Ratio 2.2 1.1-2.5 Glycohemoglobin A1c (in hous e) Reviewed date:06/19/2025 05:14:06 PM Interpretation:6.8 Performing Lab: Notes/Report: 6.8 glycohemoglobin 6.8% 5 - 6.5 % P-Lipid Panel Reviewed date:10/21/2024 11:11:45 AM Interpretation:Normal Performing Lab: Notes/Report: Test performed by [facility] [address] [place] [address] , [address], [place] [address] Jimmie Cantrell MD, Guest Services Ambassador CLIA: [id number] Cholesterol 163 <200 mg/dL Triglycerides 128 <150 [...] Results: 87 Units: mg/dL % Change: +12% P-Comprehensive Metabolic Pa lauryn (CMP) Reviewed date:10/21/2024 11:11:45 AM Interpretation:Normal Performing Lab: Notes/Report: Test performed by [facility] [address] [place] [address] , [address], [place] [address] Jimmie Cantrell MD, Guest Services Ambassador CLIA: [id number] Sodium 140 135-145 mmol/L Potassium 3.8 3.5-5.3 [...] 0.5 <0.2-1.2 mg/dL A/G Ratio 1.9 1.1-2.5 Mammogram Reviewed date:11/02/2024 04:57:06 PM Interpretation:Negative Performing Lab: Notes/Report: Negative Medications Medication SIG (Take, Route, Frequency, Duration) Notes Start Date End Date Status Mupirocin 2 % 1 application Enterprise [employer] Developer ally Twice a day 06/20/2024 Not-Taking Trulicity 1.5 MG/0.5ML as directed Subcutaneous Not-Taking Pataday 0.1 % 1 drop into affected eye Ophthalmic Twice a day 10/17/2024 Not-Takin g metFORMIN HCl ER 500 MG 1 tablet with ev ening meal Orally Once a day; Duration: 30 days 06/19/2025 Active Potassium Chloride ER 10 MEQ 1 [...] Immunizations Vaccine Route Administration Date Status Comme nts Fluzone High Dose (65yr and older) IM Intramuscular 03/24/2022 Administered Fluzone High Dose (65yr and older) IM Intramuscular 03/20/2023 Administered Fluzone Intradermal Quad private(18-64yrs) ID Intradermal 04/27/2015 Administered Fluzone PF Quad (6-35 months) Unknown 03/30/2019 Administered Fluzone Quad (6months&older) IM Intramuscular 04/15/2017 Administered Fluzone Quad (6months&older) IM Intramuscular 04/28/2018 Administered Fluzone Quad (6months&older) IM Intramuscular 04/27/2020 Administered Fluzone Quad (6months&older) Unknown 05/07/2021 Administered Hepatitis A (adult) IM Intramuscular 05/22/2018 Administer ed Hepatitis B (20 and more) IM Intramuscular 06/03/2005 Admi nistered Hepatitis B (20 and more) IM Intramuscular 07/08/2005 Admi nistered Hepatitis B (20 and more) IM Intramuscular 12/02/2005 Admi nistered PNEUMOVAX 23 VACCINE Unknown 07/06/2010 Administered PNEUMOVAX 23 VACCINE IM Intramuscular 07/03/2011 Administe red PNEUMOVAX 23 VACCINE IM Intramuscular 06/20/2024 Administe red ppd ID Intradermal 05/01/2015 Administered Prevnar (PCV13) IM Intramuscular 05/17/2018 Administered Prevnar (PCV20) IM Intramuscular 03/20/2023 Administered Tetanus Tdap-Adacel (over 7yrs) IM Intramuscular 04/28/2009 Administered tuberculin (ppd) ID Intradermal 12/07/2007 Administered tuberculin (ppd) Unknown 03/15/2015 Pending xFlu shot-36 months and older IM Intramuscular 05/20/2006 Administered xFluzone (6mos and older)-trivalent IM Intramuscular 04/14/2013 Administered xFluzone High Dose-private (65yr&older) Unknown 03/21/2025 Administered xFluzone Intradermal (18-64yrs)-trivalent ID Intradermal 03/22/2012 Administered xFluzone Intradermal (18-64yrs)-trivalent ID Intradermal 04/21/2014 Administered Problems Problem Type SNOMED Code ICD Code Onset Dates Problem Status W/U Status Risk Notes Problem Essential hypertension (98108260) Essential hypertension (I10) Active confirmed Problem Mixed anxiety and depressive disorder (358485217) Depression with anxiety (F41.8) Active confirmed Problem Mixed hyperlipidemia (581321848) Mixed hyperlipidemia (E78.2) Active confirmed Problem Gastroesophageal reflux disease (841887555) GERD without esophagitis (K21.9) Active confirmed Problem Chronic obstructive pulmonary disease (40781396) Asthmatic bronchitis , chronic (J44.9) Active confirmed Problem New daily persistent headache (458897549824204) New daily persistent headache (G44.52) Active confirmed Problem Mild intermittent asthma (026231130) Mild intermittent asthma without complication (J45.20) Active confirmed Problem Visual disturbance (41844128) Visual disturbance (H53.9) Active confirmed Problem Pain in pelvis (19657079) Pelvic pain (R10.2) Active confirmed Problem Body mass index 30.00 to 34.99 (191155122771883) BMI 34.0-34.9,adult (Z68.34) Active confirmed Problem Type II diabetes mellitus without complication (296744950) Type 2 diabetes mellitus without complication, without long-term current use of insulin (E11.9) Active confirmed Problem Depressive disorder (disorder) (78875690) Depression, unspecified depression type (F32.9) Active confirmed Problem Artificial knee joint present (108530138139) Status post knee replacement (Z96.659) Active confirmed Problem Melasma (52214667) Melasma (L81.1) Active confi rmed Problem Irritable bowel syndrome (97728535) Irritable bowel syndrome with both constipation and diarrhea (K58.2) Active confirmed Problem Fibrocystic breast changes (40602898) Fibrocystic breast changes, unspecified laterality (N60.19) Active confirmed Problem Osteoarthritis of knee (245869211) Arthropathy of knee (M17.10) Active confirmed Problem Allergic rhinitis (45715256) Non-seasonal allergic rhinitis, unspecified trigger (J30.89) Active confirmed Problem Uterine leiomyoma (41488927) History of uterine fibroid (Z86.018) Active confirmed Problem Rhus dermatitis (753480988) Rhus dermatitis (L25.5) Active confirmed Problem Fibroids (95811812) Fibroids (D21.9) Active con firmed Problem Tear film insufficiency (44221401) Eye dryness (H04.129) Active confirmed Vital Signs Heart Rate 66 /min 06/19/2025 Blood pressure diastolic 76 mm Hg 06/19/2025 Height 61.50 in 06/19/2025 Blood pressure systolic 130 mm Hg 06/19/2025 Weight 000 lbs 10/17/2024 Encounters Encounter Location Date Provider [facility] [address] [employer], [employer] [id number] 10/17/2024 Kaitlyn Butcher Essential hypertensi on I10 ; Mixed hyperlipidemia E78.2 ; Mild intermittent asthma without complication J45.20 ; Status post knee replacement Z96.659 ; Type 2 diabetes mellitus without complication, without long-term current use of insulin E11.9 ; Conjunctivitis of both eyes, unspecified conjunctivitis type H10.9 and Fibrocystic breast changes, unspecified laterality N60.19 [facility] [address] [place], [employer] [id number] 06/19/2025 Kaitlyn Butcher Essential hypertensi on I10 ; Type 2 diabetes mellitus without complication, without long-term current use of insulin E11.9 ; Status post knee replacement Z96.659 ; Irritable bowel syndrome with both constipation and diarrhea K58.2 and History of uterine fibroid Z86.018 [facility] [facility] [facility] [address] [place], [place] [id number] 06/23/2025 Kaitlyn Butcher [facility] [facility] [facility] [address] [place], [place] [id number] 06/30/2024 Kaitlyn Butcher Shortness of breath R06.02 and Abnormal stress test R94.39 [facility] [address] [place], [place] [id number] 07/08/2024 Kaitlyn [facility] [address] [place], [place] [id number] 01/20/2025 Kaitlyn Butcher [facility] [address] [place], [place] [id number] 06/20/2025 Kaitlyn Butcher Assessments Encounter Date Diagnosis (ICD Code) Assessment Notes Treatment Notes Treatment Clinical Notes Section Notes 06/30/2024 Shortness of breath (ICD-10 - R06.02) 06/30/2024 Abnormal stress test (ICD-10 - R94.39) 10/17/2024 Essential hypertension (ICD-10 - I10) 10/17/2024 Mixed hyperlipidemia (ICD-10 - E78.2) 06/19/2025 Essential hypertension (ICD-10 - I10) 06/19/2025 Type 2 diabetes mellitus without complication, without long-term current use of insulin (ICD-10 - E11.9) 06/19/2025 Status post knee replacement (ICD-10 - Z96.659) 10/17/2024 Mild intermittent asthma without complication (ICD-10 - J45.20) 06/19/2025 Irritable bowel syndrome with both constipation and diarrhea (ICD-10 - K58.2) Recommended Benefiber and Align 10/17/2024 Status post knee replacement (ICD-10 - Z96.659) 10/17/2024 Type 2 diabetes mellitus without complication, without long-term current use of insulin (ICD-10 - E11.9) 06/19/2025 History of uterine fibroid (ICD-10 - Z86.018) 10/17/2024 Conjunctivitis of both eyes, unspecified conjunctivitis type (ICD-10 - H10.9) 10/17/2024 Fibrocystic breast changes, unspecified laterality (ICD-10 - N60.19) Plan Of Treatment Pending Test Test Name Order Date Ultrasound : Abdomen and Pelvis 06/19/20 25 CBC Fingerstick (in house) 06/19/2025 ultrasound : Transvaginal 06/21/2025 Next Appt Details Provider Name:Kaitlyn Mccracken Co er, 06/23/2025 10:00:00 AM, [address], [address], [place], [place], [id number], Provider Name:Kaitlyn Mccracken [facility], 08/21/2025 11:00:00 AM, [address] [facility], [address], [place], [place], [id number], Insurance Providers Payer Name Payer Address Payer Phone Subscriber Number Group Number Insured Name Patient Relationship to Insured Coverage Start Date Coverage End Date [employer] [address] [address] [place], [place] [id number] Noris Montanez Self - patient is the insured Medications Administered Medication Instructions Date of Administration Dosage Notes Dexamethasone 03/28/2008 1 mL Medical (General) History Medical History History ICD Code Hearing deficit, chronic otitis, surgeri es Asthmatic bronchitis 02/09/2020 Negative Cologard COVID 24 Aug 2020 COVID 19 Vaccine, Pfizer 11/13, 12/04/20202023 Flu shot Surgical History Surgery Date(Month/Year) x2 breast biopsy ears x3 tubes in ear 08/12 Lt. knee surgery torn medial meniscus Ju ly sinus surgery 10-06-14 Right knee replacement, Dr. Bradley, [facility] 01/23/16 Left Knee Replacement - Dr. Hernandez @ [facility] [place] 05/07/17 right cataract removal 02/07/20 left cataract removal 02/15/20 Hospitalization History Reason Date(Month/Year) see above
--- NOTE | 2025-06-23 10:14 | US_ITS ---
PROCEDURE: US PELVIC CLINICAL INDICATION: HISTORY OF UTERINE FIBROID COMPARISON: US US PELVIC from 02/01/2020 FINDINGS: Transabdominal sonographic images of the pelvis were obtained. UTERUS: 8.3cm x 5.6cmx 3.9 cm anteverted with a combined endometrial thickness of 5.8mm. There is a fibroid at the posterior fundus of the uterus measuring 2.3 cm x 2.8 cm. LEFT OVARY: Not visualized RIGHT OVARY: Not visualized Both ovaries are not seen. There is no fluid in the cul-de-sac. IMPRESSION: 1. Anteverted uterus normal in shape and size. There is a 2.8 cm fibroid in the posterior fundus of the uterus. The endometrium is seen and appears normal. 2. Difficult examination due to intervening bowel shadowing. Patient could not tolerate transvaginal ultrasound. 3. Ovaries were not visualized. 4. No fluid in the cul-de-sac Dictated by: Baron Samuels MD 06/23/2025 17:51 Baron Samuels MD in OV 06/23/2025 17:51
== END 2025-06-23 23:59 | disposition home or self-care (01) ==
LOC: RAD 10:10
PROVIDERS: PCP Family Medicine; Visit Provider Family Medicine
DX: D25.9 Leiomyoma of uterus, unspecified (principal); N85.4 Malposition of uterus
CPT/HCPCS: 76856